=== PATIENT | female | born 1950 | race Caucasian/White ===

== ENCOUNTER 2017-12-09 19:32 | Emergency (ER) | payer MEDICARE, OTHER ==
[2017-12-09 20:06] VITALS: BP 111/58
--- NOTE | 2017-12-09 20:21 | EDM.PDOC ---
ED HPI GENERAL MEDICAL PROBLEM - General Chief Complaint: Wound Recheck Stated Complaint: [id number] BLEEDING QUITE A BIT AFTER KNEE SURGERY Time Seen by Provider: 12/09/17 20:10 Source of Information: Reports: Patient, Old Records, RN, RN Notes Reviewed History Limitations: Reports: No Limitations - History of Present Illness INITIAL COMMENTS - FREE TEXT/NARRATIVE: Zaira is a 66 yo F who present to the ER for a wound check. She reports that she had a total knee replacement on 12/07/17. She reports noticing increased drainage from her incision today. She reports that she has been more active today compared to the last couple days. Denies fever/chills. Denies trauma to knee since surgery. Onset: Today Location: Reports: Lower Extremity, Left Quality: Reports: Pressure Severity: Moderate Improves with: Reports: Rest Associated Symptoms: Reports: Other (Increased drainage from post op site. 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) Right Knee Pain Score (Numeric/FACES): 8 - Related Data Allergies Allergy/AdvReac Type Severity Reaction Status Date / Time Tetanus Vaccines and Toxoid Allergy Cannot Verified 05/09/16 06:50 [Tetanus Vaccines & Toxoid] Remember Home Meds: Home Meds Escitalopram Oxalate [Lexapro] 10 mg PO DAILY 05/09/16 [History] traZODone 50 mg PO DAILY 05/09/16 [History] Acetaminophen/oxyCODONE [Percocet 325-5 MG] 1 tab PO Q6H PRN 12/09/17 [History] LORazepam 1 tab PO ASDIRECTED 12/09/17 [History] Morphine Sulfate [Morphine Sulfate ER] 1 tab PO BID 12/09/17 [History] Sennosides/Docusate Sodium [Senna-S] 1 tab PO DAILY 12/09/17 [History] Past Medical History HEENT 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: Allergic Rhinitis Cardiovascular 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: None Respiratory 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: None Gastrointestinal 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: None Genitourinary 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: None 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 Musculoskeletal 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: Other (See Below) (right total knee replacement) Neurological 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: None Psychiatric 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: Depression, Other (See Below) Other Psychiatric History: night terrors Endocrine/Metabolic 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: None Hematologic 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: None Immunologic 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: None Oncologic (Cancer) 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: Breast Dermatologic 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: None - Past Surgical History HEENT Surgical 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: None Cardiovascular Surgical 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: None GI Surgical 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: None Female Surgical 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: None Oncologic Surgical 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: Mastectomy Other Oncologic Surgeries/Procedures: bilateral 23years ago Social & Family History - Family History Family Medical History: Noncontributory - Tobacco Use Smoking Status *Q: Never Smoker - Recreational Drug Use Recreational Drug Use: No - Living Situation & Occupation Living situation: Reports: with Family Occupation: Retired ED ROS GENERAL - Review of Systems Review Of Systems: ROS reveals no pertinent complaints other than HPI. ED EXAM, SKIN/RASH Exam: See Below Exam Limited By: No Limitations General Appearance: Alert, WD/WN, No Apparent Distress Eye Exam: Bilateral Eye: PERRL Ears: Normal External Exam, Normal Canal, Hearing Grossly Normal, Normal TMs Nose: Normal Inspection, Normal Mucosa, No Blood Throat/Mouth: Normal Inspection, Normal Lips, Normal Teeth, Normal Gums, Normal Oropharynx, Normal Voice, No Airway Compromise Head: Atraumatic, Normocephalic Neck: Normal Inspection, Supple, Non-Tender, Full Range of Motion Respiratory/Chest: No Respiratory Distress, Lungs Clear, Normal Breath Sounds, No Accessory Muscle Use, Chest Non-Tender Cardiovascular: Normal Peripheral Pulses, Regular Rate, Rhythm, No Edema, No Gallop, No JVD, No Murmur, No Rub Peripheral Pulses: 3+: Posterior Tibial (L), Dorsalis Pedis (L) GI/Abdominal: Normal Bowel Sounds, Soft, Non-Tender, No Organomegaly, No Distention, No Abnormal Bruit, No Mass (Female) Exam: Deferred Rectal (Female) Exam: Deferred Back Exam: Normal Inspection, Full Range of Motion, NT Extremities: Normal Capillary Refill, Leg Pain, Other (Swelling present to left knee. Patient has annabella in place serosanginous drainaged noted on dressing. Ecchymosis noted to medial aspect of knee. No redness or warmness noted to the touch. Other lower extremity WNL no swelling noted ) Neurological: Alert, Oriented, CN II-XII Intact, Normal Cognition, Normal Gait, Normal Reflexes, No Motor/Sensory Deficits Psychiatric: Normal Affect, Normal Mood Skin: Warm, Dry, Intact, Normal Color, Other (Surgical incision as described in above extremity assessment ) Location, Skin: Lower Extremity, Left, Other (Incision present to left knee. Annabella intact) Associated features: Swelling Lymphatic: No Adenopathy Course - Vital Signs Last Recorded V/S: Last Vital Signs Temp 99.3 F 12/09/17 20:05 Pulse 92 12/09/17 20:05 Resp 18 12/09/17 20:05 BP 111/58 L 12/09/17 20:05 Pulse Ox 94 L 12/09/17 20:05 - Orders/Labs/Meds Labs: Laboratory Tests 12/09/17 12/09/17 Range/Units 20:40 20:40 WBC 9.5 (5.0-10.0) 10^3/uL RBC 3.91 L (4.2-5.4) 10^6/uL Hgb 12.3 (12.0-16.0) g/dL Hct 36.8 L (37.0-47.0) % MCV 94.1 (80-100) fL MCH 31.5 (27.0-34.0) pg MCHC 33.4 (33.0-35.0) g/dL Plt Count 250 (150-450) 10^3/uL Neut % (Auto) 73.6 (42.2-75.2) % Lymph % (Auto) 15.0 L (20.5-50.1) % [place] % (Auto) 9.3 H (2-8) % Eos % (Auto) 1.8 (1.0-3.0) % Baso % (Auto) 0.3 (0.0-1.0) % Sodium 135 (135-145) mmol/L Potassium 3.6 (3.6-5.0) mmol/L Chloride 104 (101-111) mmol/L Carbon Dioxide 23.0 (21.0-31.0) mmol/L Anion Gap 11.6 BUN 11 (7-18) mg/dL Creatinine 1.0 (0.6-1.3) mg/dL Est Cr Clr Drug Dosing 51.14 mL/min Estimated GFR (MDRD) 56 BUN/Creatinine Ratio 11.00 Glucose 111 H (74-105) mg/dL Calcium 8.4 (8.4-10.2) mg/dl Total Bilirubin 0.6 (0.2-1.0) mg/dL AST 27 (10-42) IU/L ALT 13 (10-60) IU/L Alkaline Phosphatase 68 (42-121) IU/L Total Protein 5.7 L (6.7-8.2) g/dl Albumin 3.5 (3.2-5.5) g/dl Globulin 2.2 Albumin/Globulin Ratio 1.59 Meds: Medications Discontinued Medications Generic Name Dose Route Start Last Admin Trade Name Freq PRN Reason Stop Dose Admin Hydromorphone HCl 0.5 mg 12/09/17 21:22 12/09/17 21:27 Dilaudid IM 12/09/17 21:23 0.5 mg ONETIME ONE Administration Departure - Departure Time of Disposition: 21:43 Disposition: Home, Self-Care 01 Condition: Good Clinical Impression: Encounter for postoperative wound check - Discharge Information Instructions: Incision and Drainage, Care After Forms: ED Department Discharge Care Plan Goals: Elevate leg as much as possible when not up and moving around. Ice to help with swelling. Continue your pain medications as previously proscribed. Compression dressing to knee to help with swelling and drainage. Follow-up with orthopedics as previously scheduled.
[2017-12-09] MEDS ORDERED: HYDROmorphone 0.5 MG/0.5 ML Syringe IM ONE (21:22)
== END 2017-12-09 21:55 | disposition home or self-care (01) ==
LOC: DL.ED 19:32
DX: Z48.00 Encounter for change or removal of nonsurgical wound dressing (principal); Z88.7 Allergy status to serum and vaccine
CPT/HCPCS: 36415; 80053; 85025; 96372; 99282; J1170

== ENCOUNTER 2019-07-02 02:27 | Emergency (ER) | payer MEDICARE, OTHER ==
[2019-07-02 02:37] VITALS: BP 112/59; PULSE 92
[2019-07-02] MEDS ORDERED: Acetaminophen/HYDROcodone 325-10 MG Tab PO ONE (02:38)
--- NOTE | 2019-07-02 02:39 | EDM.PDOC ---
ED HPI GENERAL MEDICAL PROBLEM - General Chief Complaint: Chest Pain Stated Complaint: left ribs Time Seen by Provider: 07/02/19 02:37 Source of Information: Reports: Patient History Limitations: Reports: No Limitations - History of Present Illness INITIAL COMMENTS - FREE TEXT/NARRATIVE: states been out with friends and had a few drinks. slipped and fell onto left ribs a hours ago. Left Chest Pain Score (Numeric/FACES): 10 - Related Data Allergies Allergy/AdvReac Type Severity Reaction Status Date / Time Tetanus Vaccines and Toxoid Allergy Cannot Verified 07/02/19 02:31 [Tetanus Vaccines & Toxoid] Remember Home Meds: Home Meds Escitalopram Oxalate [Lexapro] 10 mg PO DAILY 05/09/16 [History] traZODone 50 mg PO DAILY 05/09/16 [History] Acetaminophen/oxyCODONE [Percocet 325-5 MG] 1 tab PO Q6H PRN 12/09/17 [History] LORazepam 1 tab PO ASDIRECTED 12/09/17 [History] Morphine Sulfate [Morphine Sulfate ER] 1 tab PO BID 12/09/17 [History] Sennosides/Docusate Sodium [Senna-S] 1 tab PO DAILY 12/09/17 [History] Past Medical History HEENT 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: Allergic Rhinitis Cardiovascular 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: None Respiratory 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: None Gastrointestinal 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: None Genitourinary 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: None 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 Musculoskeletal 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: Other (See Below) Neurological 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: None Psychiatric 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: Depression, Other (See Below) Other Psychiatric History: night terrors Endocrine/Metabolic 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: None Hematologic 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: None Immunologic 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: None Oncologic (Cancer) 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: Breast Dermatologic 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: None - Past Surgical History HEENT Surgical 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: None Cardiovascular Surgical 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: None GI Surgical 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: None Female Surgical 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: None Oncologic Surgical 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: Mastectomy Other Oncologic Surgeries/Procedures: bilateral 23years ago Social & Family History - Family History Family Medical History: Noncontributory - Tobacco Use Smoking Status *Q: Never Smoker - Caffeine Use Caffeine Use: Reports: None - Recreational Drug Use Recreational Drug Use: No - Living Situation & Occupation Living situation: Reports: with Family Occupation: Retired ED ROS GENERAL - Review of Systems Review Of Systems: ROS reveals no pertinent complaints other than HPI. ED EXAM, GENERAL - Physical Exam Exam: See Below Exam Limited By: No Limitations General Appearance: Alert, WD/WN, Mild Distress, Moderate Distress, Other (pain) Ears: Hearing Grossly Normal Throat/Mouth: Normal Voice, No Airway Compromise Head: Atraumatic Neck: Non-Tender, Full Range of Motion Respiratory/Chest: Other (tender left lateral 6-7-8 region) Cardiovascular: Regular Rate, Rhythm GI/Abdominal: Soft, Non-Tender Neurological: Alert, Oriented, Normal Cognition, Normal Gait, No Motor/Sensory Deficits Psychiatric: Tearful Skin Exam: Warm, Dry, Normal Color Lymphatic: No Adenopathy Course - Vital Signs Last Recorded V/S: Last Vital Signs Temp 35.8 C 07/02/19 02:31 Pulse 92 07/02/19 02:31 Resp 16 07/02/19 02:31 BP 112/59 L 07/02/19 02:31 Pulse Ox 97 07/02/19 02:31 - Orders/Labs/Meds Orders: Active Orders 24 hr Category Date Time Status Ribs 2V w Chest Lt [CR] Urgent Exams 07/02/19 02:35 Taken HYDROmorphone [Dilaudid] Med 07/02/19 05:00 Once 1 mg IM ONETIME ONE Meds: Medications Discontinued Medications Generic Name Dose Route Start Last Admin Trade Name Mahi PRN Reason Stop Dose Admin Hydrocodone Bitart/Acetaminophen 1 tab 07/02/19 02:38 07/02/19 02:42 Odd 325-10 Mg PO 07/02/19 02:39 1 tab ONETIME ONE Administration Ketorolac Tromethamine 30 mg 07/02/19 04:16 07/02/19 04:20 Toradol IM 07/02/19 04:17 30 mg ONETIME ONE Administration - Re-Assessments/Exams Free Text/Narrative Re-Assessment/Exam: 07/02/19 05:00 results discussed with pt. Departure - Departure Time of Disposition: 05:01 Disposition: Home, Self-Care 01 Condition: Good Clinical Impression: Ribs, multiple fractures Qualifiers: Encounter type: initial encounter Fracture type: closed Laterality: left Qualified Code(s): S22.42XA - Multiple fractures of ribs, left side, initial encounter for closed fracture Instructions: Rib Fracture, [id number] Forms: ED Department Discharge Additional Instructions: 1) rest as much as possible 2) follow up at clinic Wednesday 3) recheck if there is any change or concern rx given; norco 10 bid to tid prn pain x 12 - My Orders Last 24 Hours: My Active Orders 07/02/19 02:35 Ribs 2V w Chest Lt [CR] Urgent 07/02/19 05:00 HYDROmorphone [Dilaudid] 1 mg IM ONETIME ONE - Assessment/Plan Last 24 Hours: My Active Orders 07/02/19 02:35 Ribs 2V w Chest Lt [CR] Urgent 07/02/19 05:00 HYDROmorphone [Dilaudid] 1 mg IM ONETIME ONE
[2019-07-02] MEDS ORDERED: Ketorolac 30 MG/ML SDV IM ONE (04:16)
[2019-07-02] MEDS ORDERED: HYDROmorphone 1 MG/ML Syringe IM ONE (05:00)
== END 2019-07-02 05:15 | disposition home or self-care (01) ==
LOC: DL.ED 02:27
DX: S22.42XA Multiple fractures of ribs, left side, initial encounter for closed fracture (principal); Z88.7 Allergy status to serum and vaccine; F32.9 Major depressive disorder, single episode, unspecified; W01.0XXA Fall on same level from slipping, tripping and stumbling without subsequent striking against object, initial encounter; Y92.009 Unspecified place in unspecified non-institutional (private) residence as the place of occurrence of the external cause; Y93.01 Activity, walking, marching and hiking
CPT/HCPCS: 71101; 96372; 99283; A9270; J1170; J1885

== ENCOUNTER 2019-07-02 17:56 | Emergency (ER) | payer MEDICARE, OTHER ==
[2019-07-02] MEDS ORDERED: Rocuronium 100 MG/10 ML MDV IV ONE (17:57)
[2019-07-02] MEDS ORDERED: fentaNYL 100 MCG/2 ML SDV IV ONE (17:57)
[2019-07-02] MEDS ORDERED: Propofol 1,000 MG/100 ML SDV IV ONE (17:57)
[2019-07-02] MEDS ORDERED: Midazolam 50 MG in Sodium Chloride 0.9% 50 ML IV ONE (17:57)
[2019-07-02] MEDS ORDERED: Midazolam 1 MG/ML 2 ML SDV IV ONE (17:57)
[2019-07-02] MEDS ORDERED: Propofol 200 MG/20 ML SDV IV ONE (17:57)
[2019-07-02] MEDS ORDERED: Sodium Chloride 0.9% 10 ML Syringe FLUSH PRN (18:11)
[2019-07-02] MEDS ORDERED: fentaNYL 100 MCG/2 ML SDV ONE (18:16)
[2019-07-02] MEDS ORDERED: Midazolam 1 MG/ML 2 ML SDV ONE (18:16)
[2019-07-02 18:43] LABS: ANION GAP 15.1; CHLORIDE,CL 97 mmol/L (101-111); SODIUM,NA 130 mmol/L (135-145)
[2019-07-02 18:53] VITALS: BP 139/79; PULSE 113
--- NOTE | 2019-07-02 19:12 | PCM.SN ---
- Free Text/Narrative Note: Intubation. Pt and ED provider requesting intubation for pneumothorax and fractured ribs. Pt with difficulty breathing, RR 27 with O2 sats 97% on simple mask. Pt denies previous cardiac or pulmonary complications, NKA, and NPO for 6 hours. Pt informed of procedure as well as risks associated. Pt requesting to be intubated. 1824 Pt medicated with 5 mg of Zemuron IV, 2 mg versed and 100 mcg Fentanyl IV while being pre oxygenated. Propofol 100 mg IV and Anectine 80 mg IV. Pt intubated with glidescope 3 blade, 7.0 ETT 21 cm at lip. Pos fogging Pos ETCO2 color change. BBS with coarse sounds noted Left side of chest. Tube secured . Propofol gtt and versed gtt started. Pt with hypo tension, propofol stopped. 77/40 Ephedrine 20 mg IV given. BP returns to normotensive range. Propofol restarted at 75 mcg/kg/min PXCR ordered and report given to ER provider. Procedure time 1819 to 1909
--- NOTE | 2019-07-02 20:00 | EDM.PDOC ---
ED HPI GENERAL MEDICAL PROBLEM - General Chief Complaint: Respiratory Problem Stated Complaint: PAIN Time Seen by Provider: 07/02/19 18:15 Source of Information: Reports: Patient, EMS, EMS Notes Reviewed, RN, RN Notes Reviewed History Limitations: Reports: No Limitations, Respiratory Distress - History of Present Illness INITIAL COMMENTS - FREE TEXT/NARRATIVE: Pt to ER per [facility] with c/o pain, increased SOB, and swelling. Patient states she was seen in the ER last night with fractured ribs on the left (6&7). Xray report did not states pneumothorax. Patient states she has been becoming more edematous and short of breath throughout the day. Patient states she began noticing subcutaneous emphysema and called the ambulance. Patient requests to be intubated and a chest tube placed. Patient on NC at 6L O2 sats 88%. Onset: Today, Sudden Chest Pain Score (Numeric/FACES): 10 - Related Data Allergies Allergy/AdvReac Type Severity Reaction Status Date / Time Tetanus Vaccines and Toxoid Allergy Cannot Verified 07/02/19 19:03 [Tetanus Vaccines & Toxoid] Remember Home Meds: Home Meds Escitalopram Oxalate [Lexapro] 10 mg PO DAILY 05/09/16 [History] traZODone 50 mg PO DAILY 05/09/16 [History] Acetaminophen/oxyCODONE [Percocet 325-5 MG] 1 tab PO Q6H PRN 12/09/17 [History] LORazepam 1 tab PO ASDIRECTED 12/09/17 [History] Morphine Sulfate [Morphine Sulfate ER] 1 tab PO BID 12/09/17 [History] Sennosides/Docusate Sodium [Senna-S] 1 tab PO DAILY 12/09/17 [History] Past Medical History HEENT 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: Allergic Rhinitis Cardiovascular 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: None Respiratory 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: None Gastrointestinal 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: None Genitourinary 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: None 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 Musculoskeletal 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: Other (See Below) Neurological 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: None Psychiatric 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: Depression, Other (See Below) Other Psychiatric History: night terrors Endocrine/Metabolic 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: None Hematologic 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: None Immunologic 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: None Oncologic (Cancer) 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: Breast Dermatologic 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: None - Past Surgical History HEENT Surgical 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: None Cardiovascular Surgical 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: None GI Surgical 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: None Female Surgical 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: None Oncologic Surgical 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: Mastectomy Other Oncologic Surgeries/Procedures: bilateral 23years ago Social & Family History - Family History Family Medical History: Noncontributory - Caffeine Use Caffeine Use: Reports: None - Living Situation & Occupation Living situation: Reports: with Family Occupation: Retired ED ROS GENERAL - Review of Systems Review Of Systems: ROS reveals no pertinent complaints other than HPI. ED EXAM, GENERAL - Physical Exam Exam: See Below Exam Limited By: No Limitations General Appearance: Alert, WD/WN, Anxious, Moderate Distress Eye Exam: Bilateral Eye: EOMI, Normal Inspection Ears: Normal External Exam, Hearing Grossly Normal Nose: Normal Inspection Throat/Mouth: Other (nasal/congested sounded voice, SOB, lips swollen, patient very uncomfortable) Head: Atraumatic, Normocephalic Neck: Other (severe edema, subq emphysema) Respiratory/Chest: Respiratory Distress, Decreased Breath Sounds (left), Crackles (left), Accessory Muscle Use Cardiovascular: Normal Peripheral Pulses, Regular Rate, Rhythm, Other (severe edema to face, chest, neck, back, subq emphysema) Peripheral Pulses: 1+: Radial (L), Radial (R) GI/Abdominal: Normal Bowel Sounds, Soft, Non-Tender (Female) Exam: Deferred Rectal (Female) Exam: Deferred Back Exam: Other (upper back edematous and subq emphysema noted) Extremities: Limited Range of Motion, Other (upper arms edematous ) Neurological: Alert, Oriented, Normal Cognition, No Motor/Sensory Deficits Psychiatric: Anxious Skin Exam: Cool, Other (severe diffuse edema and subq emphysema) ED RESPIRATORY PROCEDURES - Chest Tube Insertion Chest Tube Location: Left Site: Mid Axillary Line Tube Size: 28Fr Skin Prep: CDC Guidelines Followed, Betadine [place] of [employer] [place]: Yes Number of Attempts: 1 Tube Sutured to Skin: Yes Post procedure tube position confirmed by: by CXR, by Provider Tube Connected to Suction: Yes Course - Vital Signs Last Recorded V/S: Last Vital Signs Temp 97.8 F 07/02/19 18:30 Pulse 113 H 07/02/19 18:30 Resp 30 H 07/02/19 18:30 BP 139/79 07/02/19 18:30 Pulse Ox 90 L 07/02/19 18:30 - Orders/Labs/Meds Orders: Active Orders 24 hr Category Date Time Status EKG Documentation Completion [RC] STAT Care 07/02/19 18:11 Active Peripheral IV Care [RC] . DIRECTED Care 07/02/19 18:11 Active RT Ventilator, Adult [RC] ASDIRECTED Care 07/02/19 19:50 Active Peripheral IV Insertion Adult [OM.PC] Stat Oth 07/02/19 18:11 Ordered Labs: Laboratory Tests 07/02/19 07/02/19 07/02/19 Range/Units 18:16 18:16 18:16 WBC 15.1 H (5.0-10.0) 10^3/uL RBC 4.60 (4.2-5.4) 10^6/uL Hgb 14.4 D (12.0-16.0) g/dL Hct 41.4 (37.0-47.0) % MCV 90.0 D (80-100) fL MCH 31.3 (27.0-34.0) pg MCHC 34.8 (33.0-35.0) g/dL Plt Count 427 D (150-450) 10^3/uL Neut % (Auto) 77.3 H (42.2-75.2) % Lymph % (Auto) 17.7 L (20.5-50.1) % [place] % (Auto) 4.6 (2-8) % Eos % (Auto) 0.3 L (1.0-3.0) % Baso % (Auto) 0.1 (0.0-1.0) % PT 9.4 (9.0-12.0) SEC INR 0.9 (0.9-1.2) Sodium 130 L (135-145) mmol/L Potassium 4.1 (3.6-5.0) mmol/L Chloride 97 L (101-111) mmol/L Carbon Dioxide 22.0 (21.0-31.0) mmol/L Anion Gap 15.1 BUN 14 (7-18) mg/dL Creatinine 0.9 (0.6-1.3) mg/dL Est Cr Clr Drug Dosing TNP Estimated GFR (MDRD) > 60 BUN/Creatinine Ratio 15.55 Glucose 125 H (74-105) mg/dL Calcium 8.6 (8.4-10.2) mg/dl Total Bilirubin 0.7 (0.2-1.0) mg/dL AST 28 (10-42) IU/L ALT 22 (10-60) IU/L Alkaline Phosphatase 92 (42-121) IU/L Troponin I < 0.02 (0.00-0.02) ng/ml Total Protein 7.0 (6.7-8.2) g/dl Albumin 4.3 (3.2-5.5) g/dl Globulin 2.7 Albumin/Globulin Ratio 1.59 Meds: Medications Discontinued Medications Generic Name Dose Route Start Last Admin Trade Name Freq PRN Reason Stop Dose Admin Fentanyl Confirm 07/02/19 18:16 Sublimaze Administered 07/02/19 18:17 Dose 100 mcg .ROUTE .STK-MED ONE Midazolam HCl Confirm 07/02/19 18:16 Versed 1 Mg/Ml Administered 07/02/19 18:17 Dose 2 mg .ROUTE .STK-MED ONE Sodium Chloride 10 ml 07/02/19 18:11 Saline Flush FLUSH ASDIRECTED PRN Keep Vein Open - Radiology Interpretation Free Text/Narrative:: Chest xray: FINDINGS: Lungs: Increased interstitial lung markings suggesting edema, infection or fibrotic changes. Cannot exclude left pleural effusion and adjacent atelectasis versus infiltrate. Pleural space: See Soft Tissues Finding. Heart/Mediastinum: Unremarkable. No cardiomegaly. Bones/joints: Several left rib fractures, age undetermined. Soft tissues: Extensive soft tissue emphysema in the chest wall and neck. This limits evaluation of the underlying lungs. The right lung appears darker than the left lung. CT should be obtained to exclude any underlying pathology such as pneumothorax. IMPRESSION: Extensive soft tissue emphysema in the chest wall and neck. This limits evaluation of the underlying lungs. The right lung appears darker than the left lung. CT should be obtained to exclude any underlying pathology such as pneumothorax. Increased interstitial lung markings suggesting edema, infection or fibrotic changes. Cannot exclude left pleural effusion and adjacent atelectasis versus infiltrate. Several left rib fractures, age undetermined. Consider CT Thank you for allowing us to participate in the care of your patient. Dictated and Authenticated by: Marixa Shah MD 07/02/2019 6:38 PM Central Time ([place] & [place]) Addendum created by Marixa Shah MD on 07/02/2019 7:58 PM Central Time ([place] & [place]) Please note that the chest tube is left-sided, not right. Addendum created by Marixa Shah MD on 07/02/2019 7:25 PM Central Time ([place] & [place]) THIS REPORT CONTAINS FINDINGS THAT MAY BE CRITICAL TO PATIENT CARE. The findings were verbally communicated via telephone conference with Puja Robbins at 7: 24 PM CDT on 07/02/2019. The findings were acknowledged and understood. Initial Report created on 07/02/2019 7:22 PM Central Time ([place] & [place]) PROCEDURE INFORMATION: Exam: XR Chest, 1 View Exam date and time: 07/02/2019 7:11 PM Clinical history: 68 years old, female; Other: Post intubation and chest tube placement TECHNIQUE: Imaging protocol: XR of the chest Views: 1 view. COMPARISON: CR Chest 1V Frontal 07/02/2019 6:11 PM FINDINGS: Tubes, catheters and devices: ET tube is properly positioned. NG tube ends in the proximal esophagus. Right chest tube is present. Remaining findings are unchanged since the prior exam. IMPRESSION: ET tube is properly positioned. This report is intended only for use by the referring physician, and only in accordance with law. If you received this in error, call [phone]. Page 2 of 2 NG tube ends in the proximal esophagus. Right chest tube is present. Remaining findings are unchanged since the prior exam. Thank you for allowing us to participate in the care of your patient. Dictated and Authenticated by: Marixa Shah MD 07/02/2019 7:22 PM Central Time ( & [place]) see radiologist's report Departure - Departure Time of Disposition: 19:45 Disposition: DC/Tfer to Acute Hospital 02 Condition: Poor, Serious, Critical Clinical Impression: Pneumothorax on left Ribs, multiple fractures Qualifiers: Encounter type: initial encounter Fracture type: closed Laterality: left Qualified Code(s): S22.42XA - Multiple fractures of ribs, left side, initial encounter for closed fracture Subcutaneous emphysema due to trauma Qualifiers: Encounter type: initial encounter Qualified Code(s): T79.7XXA - Traumatic subcutaneous emphysema, initial encounter - Discharge Information *PRESCRIPTION DRUG MONITORING PROGRAM REVIEWED*: No *COPY OF PRESCRIPTION DRUG MONITORING REPORT IN PATIENT [place]: No Forms: ED Department Discharge, Interfacility Transfer EMTALA - My Orders Last 24 Hours: My Active Orders 07/02/19 18:11 EKG Documentation Completion [RC] STAT Peripheral IV Care [RC] . DIRECTED Peripheral IV Insertion Adult [OM.PC] Stat 07/02/19 19:50 RT Ventilator, Adult [RC] ASDIRECTED - Assessment/Plan Last 24 Hours: My Active Orders 07/02/19 18:11 EKG Documentation Completion [RC] STAT Peripheral IV Care [RC] . DIRECTED Peripheral IV Insertion Adult [OM.PC] Stat 07/02/19 19:50 RT Ventilator, Adult [RC] ASDIRECTED
== END 2019-07-02 19:45 ==
LOC: DL.ED 17:56
DX: S27.0XXA Traumatic pneumothorax, initial encounter (principal); S22.42XA Multiple fractures of ribs, left side, initial encounter for closed fracture; T79.7XXA Traumatic subcutaneous emphysema, initial encounter; F32.9 Major depressive disorder, single episode, unspecified; Z88.7 Allergy status to serum and vaccine; J93.9 Pneumothorax, unspecified; W19.XXXA Unspecified fall, initial encounter; Y92.009 Unspecified place in unspecified non-institutional (private) residence as the place of occurrence of the external cause; W01.0XXA Fall on same level from slipping, tripping and stumbling without subsequent striking against object, initial encounter; Y93.01 Activity, walking, marching and hiking
CPT/HCPCS: 31500; 32551; 36415; 71045; 71101; 80053; 84484; 85025; 85610; 96372; 99283; 99284; 99291; 99292; A9270; C1729; J1170; J1885; J2250; J2704; J3010; J7050

== ENCOUNTER 2020-05-12 05:18 | Emergency (ER) | payer MEDICARE, OTHER ==
[2020-05-12 05:24] VITALS: BP 124/66; PULSE 118
--- NOTE | 2020-05-12 06:07 | EDM.PDOC ---
ED HPI GENERAL MEDICAL PROBLEM - General Chief Complaint: Skin Complaint Stated Complaint: REDNESS AND SWELLING IN LEG Time Seen by Provider: 05/12/20 05:50 Source of Information: Reports: Patient, RN History Limitations: Reports: No Limitations - History of Present Illness INITIAL COMMENTS - FREE TEXT/NARRATIVE: 69-year-old female who presents to the ER with complaints of right leg pain and redness that began yesterday. Patient states that pain came on out of sudden. She reports having leg bath yesterday but couldn't sleep because of pain. She denies any fevers, chills at this time. Has not tried anything for pain. Denies any recent injury or wounds. Right Lower Leg Pain Score (Numeric/FACES): 8 - Related Data Allergies Allergy/AdvReac Type Severity Reaction Status Date / Time Tetanus Vaccines and Toxoid Allergy Cannot Verified 05/12/20 05:24 [Tetanus Vaccines & Toxoid] Remember Home Meds: Home Meds Escitalopram Oxalate [Lexapro] 20 mg PO DAILY 05/09/16 [History] traZODone 50 mg PO DAILY 05/09/16 [History] LORazepam 1 tab PO ASDIRECTED 12/09/17 [History] Omeprazole 20 mg PO DAILY 05/12/20 [History] Past Medical History HEENT 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: Allergic Rhinitis Cardiovascular 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: None Respiratory 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: None Gastrointestinal 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: GERD Genitourinary 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: None 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: 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 Musculoskeletal 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: Arthritis Neurological 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: None Psychiatric 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: Depression, Other (See Below) Other Psychiatric History: night terrors Endocrine/Metabolic 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: None Hematologic 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: None Immunologic 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: None Oncologic (Cancer) 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: Breast Dermatologic 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: None - Infectious Disease History Infectious Disease 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: Chicken Pox, Measles, Mumps - Past Surgical History HEENT Surgical 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: None Cardiovascular Surgical 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: None GI Surgical 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: None Female Surgical 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: None Oncologic Surgical 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: Mastectomy Other Oncologic Surgeries/Procedures: bilateral 23years ago Social & Family History - Family History Family Medical History: Noncontributory - Tobacco Use Smoking Status *Q: Current Every Day Smoker Years of Tobacco use: 40 Packs/Tins Daily: 0.3 Second Hand Smoke Exposure: Yes - Caffeine Use Caffeine Use: Reports: None - Recreational Drug Use Recreational Drug Use: No - Living Situation & Occupation Living situation: Reports: with Family Occupation: Retired ED ROS GENERAL - Review of Systems Review Of Systems: Comprehensive ROS is negative, except as noted in HPI. ED EXAM, SKIN/RASH Exam: See Below Exam Limited By: No Limitations General Appearance: Alert, Mild Distress Respiratory/Chest: No Respiratory Distress, Lungs Clear, Normal Breath Sounds, No Accessory Muscle Use, Chest Non-Tender Cardiovascular: Normal Peripheral Pulses, Regular Rate, Rhythm, No Edema, No Gallop, No JVD, No Murmur, No Rub Peripheral Pulses: 3+: Posterior Tibial (R), Dorsalis Pedis (R) Neurological: Alert, Oriented, Normal Gait, No Motor/Sensory Deficits Psychiatric: Normal Affect, Normal Mood Skin: Increased Warmth (and redness noted on the right carlos. Area demarcated with a marker.) Location, Skin: Lower Extremity, Right Associated features: Warmth, Tenderness Course - Vital Signs Last Recorded V/S: Last Vital Signs Temp 97 F 05/12/20 05:20 Pulse 118 H 05/12/20 05:20 Resp 18 05/12/20 05:20 BP 124/66 05/12/20 05:20 Pulse Ox 94 L 05/12/20 05:20 - Re-Assessments/Exams Free Text/Narrative Re-Assessment/Exam: Review exam findings with patient. Rx for clindamycin sent home with patient. Medication side effects reviewed with patient. Follow up with PCP next week. Departure - Departure Time of Disposition: 06:11 Disposition: Home, Self-Care 01 Condition: Good Clinical Impression: Cellulitis Qualifiers: Site of cellulitis: extremity Site of cellulitis of extremity: lower extremity Laterality: right Qualified Code(s): L03.115 - Cellulitis of right lower limb - Discharge Information Instructions: Cellulitis, Adult, [id number] Additional Instructions: Encourage patient to apply ice to the right leg and elevate it at home. Ibuprofen and Tylenol when necessary for pain. Take antibiotics as prescribed. Also take probiotics when having diarrhea. Follow up PCP next week. Sepsis Event Note (ED) - Evaluation Sepsis Screening Result: No Definite Risk - Focused Exam Vital Signs: Vital Signs Temp Pulse Resp BP Pulse Ox 05/12/20 05:20 97 F 118 H 18 124/66 94 L
== END 2020-05-12 06:15 | disposition home or self-care (01) ==
LOC: DL.ED 05:18
DX: L03.115 Cellulitis of right lower limb (principal); K21.9 Gastro-esophageal reflux disease without esophagitis; F32.9 Major depressive disorder, single episode, unspecified; F17.210 Nicotine dependence, cigarettes, uncomplicated; Z88.7 Allergy status to serum and vaccine; Z79.899 Other long term (current) drug therapy
CPT/HCPCS: 99283

== ENCOUNTER 2020-05-16 22:24 | Emergency (ER) | payer MEDICARE, OTHER ==
[2020-05-16 22:32] VITALS: BP 148/82; PULSE 108
--- NOTE | 2020-05-16 22:42 | EDM.PDOC ---
ED HPI GENERAL MEDICAL PROBLEM - General Chief Complaint: Skin Complaint Stated Complaint: CELLULITUS ON THE RIGHT LEG, PAIN Time Seen by Provider: 05/16/20 22:30 Source of Information: Reports: Patient History Limitations: Reports: No Limitations - History of Present Illness INITIAL COMMENTS - FREE TEXT/NARRATIVE: This 69 yo female patient reports to the ED with right anterior carlos discomfort. The patient was seen in the ED 4 days ago, diagnosed with cellulitis, started on Clindamycin and reports increased pain to the area. The patient reports she has been taking ibuprofen with no symptom improvement. The patient reports she has been taking the antibiotics as prescribed. The patient has not followed-up with her primary care facility. Duration: Day(s):, Constant, Getting Worse Location: Reports: Lower Extremity, Right Quality: Reports: Ache, Throbbing Severity: Moderate Improves with: Reports: None Worsens with: Reports: None Context: Reports: Other Associated Symptoms: Reports: No Other Symptoms Treatments KENNEL SUPERVISOR: Reports: NSAIDS Right Lower Leg Pain Score (Numeric/FACES): 8 - Related Data Allergies Allergy/AdvReac Type Severity Reaction Status Date / Time Tetanus Vaccines and Toxoid Allergy Cannot Verified 05/16/20 22:30 [Tetanus Vaccines & Toxoid] Remember Home Meds: Home Meds Escitalopram Oxalate [Lexapro] 20 mg PO DAILY 05/09/16 [History] traZODone 50 mg PO DAILY 05/09/16 [History] LORazepam 1 tab PO ASDIRECTED 12/09/17 [History] Omeprazole 20 mg PO DAILY 05/12/20 [History] Past Medical History HEENT 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: Allergic Rhinitis Cardiovascular 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: None Respiratory 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: None Gastrointestinal 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: GERD Genitourinary 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: None NATIONAL SALES 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: None Musculoskeletal 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: Arthritis Neurological 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: None Psychiatric 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: Anxiety, Depression, Other (See Below) Other Psychiatric History: night terrors Endocrine/Metabolic 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: None Hematologic 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: None Immunologic 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: None Oncologic (Cancer) 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: Breast Dermatologic 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: None - Infectious Disease History Infectious Disease 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: Chicken Pox, Measles, Mumps - Past Surgical History HEENT Surgical 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: None Cardiovascular Surgical 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: None GI Surgical 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: None Female Surgical 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: None Oncologic Surgical 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: Mastectomy Other Oncologic Surgeries/Procedures: bilateral 23years ago Social & Family History - Family History Family Medical History: Noncontributory - Tobacco Use Smoking Status *Q: Current Every Day Smoker Years of Tobacco use: 10 Packs/Tins Daily: 0.2 - Caffeine Use Caffeine Use: Reports: Coffee - Recreational Drug Use Recreational Drug Use: No - Living Situation & Occupation Living situation: Reports: with Family Occupation: Retired ED ROS GENERAL - Review of Systems Review Of Systems: Comprehensive ROS is negative, except as noted in HPI. ED EXAM, SKIN/RASH Exam: See Below Exam Limited By: No Limitations General Appearance: Alert, WD/WN, No Apparent Distress Eye Exam: Bilateral Eye: EOMI, Normal Inspection, PERRL Ears: Normal External Exam, Normal Canal, Hearing Grossly Normal, Normal TMs Nose: Normal Inspection, Normal Mucosa, No Blood Throat/Mouth: Normal Inspection, Normal Lips, Normal Teeth, Normal Gums, Normal Oropharynx, Normal Voice, No Airway Compromise Head: Atraumatic, Normocephalic Neck: Normal Inspection, Supple, Non-Tender, Full Range of Motion Respiratory/Chest: No Respiratory Distress, Lungs Clear, Normal Breath Sounds, No Accessory Muscle Use, Chest Non-Tender Cardiovascular: Normal Peripheral Pulses, Regular Rate, Rhythm, No Edema, No Gallop, No JVD, No Murmur, No Rub GI/Abdominal: Normal Bowel Sounds, Soft, Non-Tender, No Organomegaly, No Distention, No Abnormal Bruit, No Mass (Female) Exam: Deferred Rectal (Female) Exam: Deferred Back Exam: Normal Inspection, Full Range of Motion, NT Extremities: Leg Pain (right anterior leg pain) Neurological: Alert, Oriented, CN II-XII Intact, Normal Cognition, Normal Gait, Normal Reflexes, No Motor/Sensory Deficits Psychiatric: Normal Affect, Normal Mood Skin: Warm, Dry, Intact, Normal Color, Erythema (mild erythema well within borders drawn at last visit. ) Location, Skin: Lower Extremity, Right Associated features: Tenderness. No: Warmth, Swelling Lymphatic: No Adenopathy Course - Vital Signs Last Recorded V/S: Last Vital Signs Temp 36.4 C 05/16/20 22:30 Pulse 108 H 05/16/20 22:30 Resp 20 05/16/20 22:30 BP 148/82 H 05/16/20 22:30 Pulse Ox 96 05/16/20 22:30 - Orders/Labs/Meds Orders: Active Orders 24 hr Category Date Time Status CULTURE BLOOD [BC] Stat Lab 05/16/20 22:33 Ordered Labs: Laboratory Tests 05/16/20 05/16/20 05/16/20 Range/Units 22:43 22:43 22:43 WBC 8.3 (5.0-10.0) 10^3/uL RBC 4.70 (4.2-5.4) 10^6/uL Hgb 14.7 (12.0-16.0) g/dL Hct 42.8 (37.0-47.0) % MCV 91.1 (80-100) fL MCH 31.3 (27.0-34.0) pg MCHC 34.3 (33.0-35.0) g/dL Plt Count 346 D (150-450) 10^3/uL Neut % (Auto) 58.0 (42.2-75.2) % Lymph % (Auto) 33.7 (20.5-50.1) % Green % (Auto) 5.9 (2-8) % Eos % (Auto) 2.0 (1.0-3.0) % Baso % (Auto) 0.4 (0.0-1.0) % D-Dimer, Quantitative 642 H (0-400) ng/mL Sodium 139 (136-145) mmol/L Potassium 3.6 (3.5-5.1) mmol/L Chloride 103 (98-107) mmol/L Carbon Dioxide 24 (21-32) mmol/L Anion Gap 15.6 H (7-13) mEq/L BUN 11 (7-18) mg/dL Creatinine 0.95 (0.55-1.02) mg/dL Est Cr Clr Drug Dosing 53.79 mL/min Estimated GFR (MDRD) 59 BUN/Creatinine Ratio 11.6 (No establ ref range) Glucose 108 H (74-99) mg/dL Lactic Acid (0.4-2.0) mmol/L Calcium 9.1 (8.5-10.1) mg/dL Total Bilirubin 0.3 (0.2-1.0) mg/dL AST 14 L (15-37) U/L ALT 16 (14-59) U/L Alkaline Phosphatase 90 (46-116) U/L Total Protein 7.0 (6.4-8.2) g/dL Albumin 3.9 (3.4-5.0) g/dL Globulin 3.1 Albumin/Globulin Ratio 1.3 /06/25 Range/Units 22:43 WBC (5.0-10.0) 10^3/uL RBC (4.2-5.4) 10^6/uL Hgb (12.0-16.0) g/dL Hct (37.0-47.0) % MCV (80-100) fL MCH (27.0-34.0) pg MCHC (33.0-35.0) g/dL Plt Count (150-450) 10^3/uL Neut % (Auto) (42.2-75.2) % Lymph % (Auto) (20.5-50.1) % Green % (Auto) (2-8) % Eos % (Auto) (1.0-3.0) % Baso % (Auto) (0.0-1.0) % D-Dimer, Quantitative (0-400) ng/mL Sodium (136-145) mmol/L Potassium (3.5-5.1) mmol/L Chloride (98-107) mmol/L Carbon Dioxide (21-32) mmol/L Anion Gap (7-13) mEq/L BUN (7-18) mg/dL Creatinine (0.55-1.02) mg/dL Est Cr Clr Drug Dosing mL/min Estimated GFR (MDRD) BUN/Creatinine Ratio (No establ ref range) Glucose (74-99) mg/dL Lactic Acid 1.3 (0.4-2.0) mmol/L Calcium (8.5-10.1) mg/dL Total Bilirubin (0.2-1.0) mg/dL AST (15-37) U/L ALT (14-59) U/L Alkaline Phosphatase (46-116) U/L Total Protein (6.4-8.2) g/dL Albumin (3.4-5.0) g/dL Globulin Albumin/Globulin Ratio Departure - Departure Time of Disposition: 00:45 Disposition: Home, Self-Care 01 Condition: Fair Clinical Impression: Cellulitis Qualifiers: Site of cellulitis: extremity Site of cellulitis of extremity: lower extremity Laterality: right Qualified Code(s): L03.115 - Cellulitis of right lower limb - Discharge Information *PRESCRIPTION DRUG MONITORING PROGRAM REVIEWED*: Not Applicable *COPY OF PRESCRIPTION DRUG MONITORING REPORT IN PATIENT CHAPITO: Not Applicable Instructions: Cellulitis, Adult, [id number] Forms: ED Department Discharge Care Plan Goals: The patient was advised of the examination, lab and ultrasound results. The patient was encouraged to continue with the current antibiotics as prescribed. The patient should keep the extremity elevated to reduce swelling. The patient may take Tylenol or ibuprofen as directed for temporary symptom relief. If the patient has any additional symptoms or concerns, the patient should either follow-up with her primary care facility or return to the emergency department. Sepsis Event Note (ED) - Evaluation Sepsis Screening Result: No Definite Risk - Focused Exam Vital Signs: Vital Signs Temp Pulse Resp BP Pulse Ox 05/16/20 22:30 36.4 C 108 H 20 148/82 H 96 - My Orders Last 24 Hours: My Active Orders 05/16/20 22:33 CULTURE BLOOD [BC] Stat - Assessment/Plan Last 24 Hours: My Active Orders 05/16/20 22:33 CULTURE BLOOD [BC] Stat
[2020-05-16 23:08] LABS: ANION GAP 15.6 mEq/L (7-13)
--- NOTE | 2020-05-17 00:40 | US ---
PROCEDURE INFORMATION: Exam: US Duplex Right Lower Extremity Veins, Limited Exam date and time: 05/16/2020 11:48 PM Age: 69 years old Clinical indication: Swelling (edema) of limb; Lower extremity, right; Additional info: Right lower extremity swelling (d-dimer 642) TECHNIQUE: Imaging protocol: Real-time Duplex ultrasound of the Right Lower Extremity with 2-D hollis scale, color Doppler flow and spectral waveform analysis with image documentation. Limited exam was focused on the right lower extremity veins. COMPARISON: No relevant prior studies available. FINDINGS: Right deep veins: Normal blood flow within and/or compressibility of the right common femoral, femoral, distal deep femoral, popliteal, posterior tibial and peroneal veins. Right superficial veins: Saphenofemoral junction and upper greater saphenous vein patent without thrombus. Left deep veins: Normal flow within and compressibility of the left common femoral vein and saphenofemoral junction also demonstrated. Soft tissues: Unremarkable. IMPRESSION: No deep venous thrombosis in the right lower extremity.
== END 2020-05-17 00:51 | disposition home or self-care (01) ==
LOC: DL.ED 22:24
DX: L03.115 Cellulitis of right lower limb (principal); K21.9 Gastro-esophageal reflux disease without esophagitis; F41.9 Anxiety disorder, unspecified; F32.9 Major depressive disorder, single episode, unspecified; F17.210 Nicotine dependence, cigarettes, uncomplicated; Z88.7 Allergy status to serum and vaccine; Z79.899 Other long term (current) drug therapy
CPT/HCPCS: 36415; 80053; 83605; 85025; 85379; 87040; 93971; 99283; 99284-25

== ENCOUNTER 2020-07-25 08:01 | Emergency (ER) | payer MEDICARE, OTHER ==
[2020-07-25 08:22] VITALS: BP 136/67; PULSE 101
--- NOTE | 2020-07-25 09:04 | EDM.PDOC ---
ED HPI GENERAL MEDICAL PROBLEM - General Chief Complaint: Lower Extremity Injury/Pain Stated Complaint: BACK SPASMS MUSCLE PAIN POSSIBLE COVID Time Seen by Provider: 07/25/20 08:50 Source of Information: Reports: Patient History Limitations: Reports: No Limitations - History of Present Illness INITIAL COMMENTS - FREE TEXT/NARRATIVE: This 69 yo female patient reports to the ED with right hip/pelvic pain and a cough for the past week (possible exposure to COVID). The patient reports she was filling her bird feeders last night and went to move the food container when she lost control of the container and fell over the top of the container. The patient reports she felt/heard a "pop" in her right hip during the incident and has been having difficulties lifting her right leg since the time of the fall. Onset: Today Onset Date: 07/25/20 Onset Time: 01:00 Duration: Constant Location: Reports: Lower Extremity, Right Quality: Reports: Ache, Dull Severity: Moderate Improves with: Reports: Rest Worsens with: Reports: Movement Context: Reports: Activity Associated Symptoms: Reports: Cough (1 week) Right Thigh Pain Score (Numeric/FACES): 7 - Related Data Allergies Allergy/AdvReac Type Severity Reaction Status Date / Time Tetanus Vaccines and Toxoid Allergy Cannot Verified 07/25/20 08:23 [Tetanus Vaccines & Toxoid] Remember Home Meds: Home Meds Escitalopram Oxalate [Lexapro] 20 mg PO DAILY 05/09/16 [History] traZODone 50 mg PO DAILY 05/09/16 [History] LORazepam 1 tab PO ASDIRECTED 12/09/17 [History] Omeprazole 20 mg PO DAILY 05/12/20 [History] Past Medical History HEENT 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: Allergic Rhinitis Other HEENT History: wears glasses Cardiovascular 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: None Respiratory 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: None Gastrointestinal 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: GERD Genitourinary 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: None 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 Musculoskeletal 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: Arthritis Neurological 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: None Psychiatric 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: Anxiety, Depression, Other (See Below) Other Psychiatric History: night terrors Endocrine/Metabolic 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: None Hematologic 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: None Immunologic 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: None Oncologic (Cancer) 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: Breast Dermatologic 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: None - Infectious Disease History Infectious Disease 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: Chicken Pox, Measles, Mumps - Past Surgical History HEENT Surgical 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: None Cardiovascular Surgical 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: None GI Surgical 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: None Female Surgical 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: None Musculoskeletal Surgical 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: Knee Replacement Oncologic Surgical 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: Mastectomy Other Oncologic Surgeries/Procedures: bilateral 23years ago Social & Family History - Family History Family Medical History: No Pertinent Family History - Tobacco Use Tobacco Use Status *Q: Current Every Day Tobacco User Years of Tobacco use: 40 Packs/Tins Daily: 0.5 Second Hand Smoke Exposure: No - Caffeine Use Caffeine Use: Reports: Coffee, Soda - Recreational Drug Use Recreational Drug Use: No - Living Situation & Occupation Living situation: Reports: with Family Occupation: Retired Review of Systems - Review of Systems Review Of Systems: Comprehensive ROS is negative, except as noted in HPI. ED EXAM, GENERAL - Physical Exam Exam: See Below Exam Limited By: No Limitations General Appearance: Alert, WD/WN, Mild Distress Eye Exam: Bilateral Eye: EOMI, Normal Inspection, PERRL Ears: Normal External Exam, Normal Canal, Hearing Grossly Normal, Normal TMs Nose: Normal Inspection, Normal Mucosa, No Blood Throat/Mouth: Normal Inspection, Normal Lips, Normal Teeth, Normal Gums, Normal Oropharynx, Normal Voice, No Airway Compromise Head: Atraumatic, Normocephalic Neck: Normal Inspection, Supple, Non-Tender, Full Range of Motion Respiratory/Chest: No Respiratory Distress, Lungs Clear, Normal Breath Sounds, No Accessory Muscle Use, Chest Non-Tender Cardiovascular: Normal Peripheral Pulses, Regular Rate, Rhythm, No Edema, No Gallop, No JVD, No Murmur, No Rub GI/Abdominal: Normal Bowel Sounds, Soft, Non-Tender, No Organomegaly, No Distention, No Abnormal Bruit, No Mass (Female) Exam: Deferred Rectal (Female) Exam: Deferred Back Exam: Paraspinal Tenderness (generalized lower back) Extremities: Leg Pain (Right leg and hip pain. Difficulties lifting her leg off the bed. ) Neurological: Alert, Oriented, CN II-XII Intact, Normal Cognition, Normal Gait, Normal Reflexes, No Motor/Sensory Deficits Psychiatric: Normal Affect, Normal Mood Skin Exam: Warm, Dry, Intact, Normal Color, No Rash Lymphatic: No Adenopathy Course - Vital Signs Last Recorded V/S: Last Vital Signs Temp 36.4 C 07/25/20 08:17 Pulse 101 H 07/25/20 08:17 Resp 16 07/25/20 08:17 BP 136/67 07/25/20 08:17 Pulse Ox 97 07/25/20 08:17 - Orders/Labs/Meds Labs: Laboratory Tests 07/25/20 Range/Units 08:15 SARS CoV-2 RNA Rapid BERTRAND Negative (NEGATIVE) Meds: Medications Discontinued Medications Generic Name Dose Route Start Last Admin Trade Name Mahi PRN Reason Stop Dose Admin Methylprednisolone Sodium Succinate 125 mg 07/25/20 09:47 Solu-Medrol IM 07/25/20 09:48 ONETIME ONE Departure - Departure Time of Disposition: 09:50 Disposition: Home, Self-Care 01 Condition: Fair Clinical Impression: Strain of right hip Qualifiers: Encounter type: initial encounter Qualified Code(s): S76.011A - Strain of muscle, fascia and tendon of right hip, initial encounter Sciatica Qualifiers: Laterality: right Qualified Code(s): M54.31 - Sciatica, right side - Discharge Information *PRESCRIPTION DRUG MONITORING PROGRAM REVIEWED*: Not Applicable *COPY OF PRESCRIPTION DRUG MONITORING REPORT IN PATIENT CHAPITO: Not Applicable Instructions: Muscle Strain, [id number], Sciatica, [id number] Forms: ED Department Discharge Care Plan Goals: The patient was advised of the examination, lab and x-ray results during the visit. The patient was given an injection of SoluMedrol while in the ED. The patient was discharged with a script for Prednisone (20 mg) # 8 to take 2 by mouth daily with food starting 07/26/20. The patient should rest and ice the area over the next 24 hours. If the patient has any additional symptoms or concerns, the patient should either return to the emergency department or visit her primary care facility. Sepsis Event Note (ED) - Evaluation Sepsis Screening Result: No Definite Risk - Focused Exam Vital Signs: Vital Signs Temp Pulse Resp BP Pulse Ox 07/25/20 08:17 36.4 C 101 H 16 136/67 97
--- NOTE | 2020-07-25 09:34 | CR ---
PROCEDURE INFORMATION: Exam: XR Right Hip with Pelvis when Performed Exam date and time: 07/25/2020 9:08 AM Age: 69 years old Clinical indication: Hip pain; Right hip; Additional info: Fell with right hip pain (feeling of instability) TECHNIQUE: Imaging protocol: XR Right hip with pelvis when performed. Views: 2 or 3 views. COMPARISON: No relevant prior studies available. FINDINGS: Bones/joints: No fracture. No dislocation. Mild degenerative changes in the right hip joint with osteophyte formation off of the lateral and inferior femoral articular margins. Degenerative changes present in the left hip joint though milder. The symphysis pubis and sacroiliac joints are not diastatic. Soft tissues: No acute soft tissue abnormality. IMPRESSION: 1. No acute osseous abnormality. 2. Asymmetric hip osteoarthritis.
[2020-07-25] MEDS ORDERED: methylPREDNISolone Sodium Succinate 125 MG/2 ML SDV IM ONE (09:47)
== END 2020-07-25 10:03 | disposition home or self-care (01) ==
LOC: DL.ED 08:01
DX: S76.011A Strain of muscle, fascia and tendon of right hip, initial encounter (principal); M54.31 Sciatica, right side; K21.9 Gastro-esophageal reflux disease without esophagitis; F41.9 Anxiety disorder, unspecified; F32.9 Major depressive disorder, single episode, unspecified; F17.210 Nicotine dependence, cigarettes, uncomplicated; Z88.7 Allergy status to serum and vaccine; Z79.899 Other long term (current) drug therapy; Z20.828 Contact with and (suspected) exposure to other viral communicable diseases; W01.0XXA Fall on same level from slipping, tripping and stumbling without subsequent striking against object, initial encounter
CPT/HCPCS: 96372; 99284-25; J2930; U0002

== ENCOUNTER 2020-09-07 16:19 | Emergency (ER) | payer MEDICARE, OTHER ==
[2020-09-07 17:08] VITALS: BP 149/86; PULSE 101
[2020-09-07] MEDS ORDERED: Ketorolac 30 MG/ML SDV IM ONE (17:25)
--- NOTE | 2020-09-07 17:39 | CT ---
PROCEDURE INFORMATION: Exam: CT Chest Without Contrast; Diagnostic Exam date and time: 09/07/2020 5:04 PM Age: 69 years old Clinical indication: Other: HX breast CA S/P b/l mastectomy with implants--hx left rib FX with pneumothorax; Additional info: Fall RT chest wall and sternal pain TECHNIQUE: Imaging protocol: Diagnostic computed tomography of the chest without contrast. Radiation optimization: All CT scans at this facility use at least one of these dose optimization techniques: automated exposure control; mA and/or kV adjustment per patient size (includes targeted exams where dose is matched to clinical indication); or iterative reconstruction. COMPARISON: CR Chest 1V Frontal 07/02/2019 7:11 PM FINDINGS: Lungs: Moderate diffuse emphysematous changes are present. Mild non-specific patchy linear density at both bases. These changes could be inflammatory or could reflect atelectasis. Pleural space: No pleural effusion. No pneumothorax. Heart: The heart is not enlarged. Aorta: There is no thoracic aortic aneurysm. There is mild diffuse calcific atherosclerotic plaque. Lymph nodes: There is no evidence of lymphadenopathy. Adrenals: The adrenal glands are normal. Bones/joints: There multiple healed left-sided rib fractures. There is significant respiratory motion limiting rib detail. No displaced right-sided rib fracture seen. Subtle nondisplaced rib fractures could be obscured. Soft tissues: Status post bilateral mastectomy.Status post bilateral breast implants. IMPRESSION: 1. No acute findings. 2. Limited rib detail. No definitive acute rib fracture seen. There multiple healed left rib fractures.
--- NOTE | 2020-09-07 17:54 | EDM.PDOC ---
"Scribed by Usha Boykin 09/07/20 [id number] for Eliana Sommer MD ED HPI GENERAL MEDICAL PROBLEM - General Chief Complaint: General Stated Complaint: FELL BROKE RIBS Time Seen by Provider: 09/07/20 17:00 Source of Information: Reports: Patient, RN, RN Notes Reviewed History Limitations: Reports: No Limitations - History of Present Illness INITIAL COMMENTS - FREE TEXT/NARRATIVE: Patient presents to ED by POV. She comes in immediately following a mechanical fall on the ice. She stepped out of her vehicle and slipped falling first face onto her chest. She is experiencing sternal and right chest pain and shortness of breath secondary to chest wall pain. Neither symptom present prior to fall. She has been having frequent falls and was worked up by neurology recently, but states that this fall was due to slipping on the ice. She denies dizziness, loss of consciousness, palpitations. She did not hit her head. She denies any bowel or bladder incontinence. She did not bite her tongue. Her only symptoms at this time are the chest pain and secondary dyspnea. Onset: Today Duration: Constant Location: Reports: Chest Quality: Reports: Ache Severity: Severe Improves with: Reports: None Worsens with: Reports: Movement Associated Symptoms: Reports: No Other Symptoms right ribs Pain Score (Numeric/FACES): 10 - Related Data Allergies Allergy/AdvReac Type Severity Reaction Status Date / Time Tetanus Vaccines and Toxoid Allergy Cannot Verified 09/07/20 17:13 [Tetanus Vaccines & Toxoid] Remember Home Meds: Home Meds Escitalopram Oxalate [Lexapro] 20 mg PO DAILY 05/09/16 [History] traZODone 50 mg PO DAILY 05/09/16 [History] LORazepam 1 tab PO ASDIRECTED 12/09/17 [History] Omeprazole 20 mg PO DAILY 05/12/20 [History] Past Medical History HEENT 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: Allergic Rhinitis Other HEENT History: wears glasses Cardiovascular 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: None Respiratory 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: None Gastrointestinal 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: GERD Genitourinary 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: None 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 Musculoskeletal 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: Arthritis Neurological 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: None Psychiatric 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: Anxiety, Depression, Other (See Below) Other Psychiatric History: night terrors Endocrine/Metabolic 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: None Hematologic 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: None Immunologic 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: None Oncologic (Cancer) 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: Breast Dermatologic 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: None - Infectious Disease History Infectious Disease 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: Chicken Pox, Measles, Mumps - Past Surgical History HEENT Surgical 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: None Cardiovascular Surgical 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: None GI Surgical 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: None Female Surgical 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: None Musculoskeletal Surgical 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: Knee Replacement Oncologic Surgical 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: Mastectomy Other Oncologic Surgeries/Procedures: bilateral 23years ago Social & Family History - Family History Family Medical History: No Pertinent Family History - Caffeine Use Caffeine Use: Reports: Coffee, Soda - Living Situation & Occupation Living situation: Reports: with Family Occupation: Retired ED ROS GENERAL - Review of Systems Review Of Systems: Comprehensive ROS is negative, except as noted in HPI. ED EXAM, GENERAL - Physical Exam Exam: See Below Exam Limited By: No Limitations General Appearance: Alert, Moderate Distress Eye Exam: Bilateral Eye: EOMI, PERRL Ears: Normal External Exam, Normal Canal, Hearing Grossly Normal, Normal TMs Nose: Normal Inspection, Normal Mucosa, No Blood Throat/Mouth: Normal Inspection, Normal Lips, Normal Teeth, Normal Gums, Normal Oropharynx, Normal Voice, No Airway Compromise Head: Atraumatic, Normocephalic Neck: Normal Inspection, Supple, Non-Tender, Full Range of Motion Respiratory/Chest: No Respiratory Distress, Lungs Clear, Normal Breath Sounds, No Accessory Muscle Use, Chest Non-Tender, Other (sternal and right chest pain to palpation. ) Cardiovascular: Normal Peripheral Pulses, Regular Rate, Rhythm, No Edema, No Gallop, No JVD, No Murmur, No Rub GI/Abdominal: Normal Bowel Sounds, Soft, Non-Tender, No Organomegaly, No Distention, No Abnormal Bruit, No Mass (Female) Exam: Deferred Rectal (Female) Exam: Deferred Extremities: Normal Inspection, Normal Range of Motion, Non-Tender, No Pedal Edema, Normal Capillary Refill, Other ( Minimal pain to palpation over the greater trochanter of the right hip. ) Neurological: Alert, Oriented, CN II-XII Intact, Normal Cognition, Normal Gait, Normal Reflexes, No Motor/Sensory Deficits Psychiatric: Normal Affect, Normal Mood Skin Exam: Warm, Dry, Intact, Normal Color, No Rash Course - Vital Signs Last Recorded V/S: Last Vital Signs Temp 98.6 F 09/07/20 16:30 Pulse 101 H 09/07/20 16:30 Resp 20 09/07/20 16:30 BP 149/86 H 09/07/20 16:30 Pulse Ox 96 09/07/20 16:30 - Orders/Labs/Meds Meds: Medications Discontinued Medications Generic Name Dose Route Start Last Admin Trade Name Freq PRN Reason Stop Dose Admin Ketorolac Tromethamine 30 mg 09/07/20 17:25 09/07/20 17:36 Toradol IM 09/07/20 17:26 30 mg ONETIME ONE Administration - Radiology Interpretation Free Text/Narrative:: [facility] Final Radiology Report Call: [phone] assistance Online chat: [email or web address] Name: AKIN TALAMANTES Age: 69Years F Date: 09/07/2020 SSN: -- : 1950 Study: CT CHEST WO CONT Requesting Physician: ELIANA SOMMER Images: 290 Addl Studies: Provided Clinical History: Fall Rt chest wall and sternal pain Contrast: Without Contrast Medium: Contrast Amount: Contrast Method: Page 1 of 2 PROCEDURE INFORMATION: Exam: CT Chest Without Contrast; Diagnostic Exam date and time: 09/07/2020 5:04 PM Age: 69 years old Clinical indication: Other: HX breast CA S/P b/l mastectomy with implants--hx left rib FX with pneumothorax; Additional info: Fall RT chest wall and sternal pain TECHNIQUE: Imaging protocol: Diagnostic computed tomography of the chest without contrast. Radiation optimization: All CT scans at this facility use at least one of these dose optimization techniques: automated exposure control; mA and/or kV adjustment per patient size (includes targeted exams where dose is matched to clinical indication); or iterative reconstruction. COMPARISON: CR Chest 1V Frontal 07/02/2019 7:11 PM FINDINGS: Lungs: Moderate diffuse emphysematous changes are present. Mild non-specific patchy linear density at both bases. These changes could be inflammatory or could reflect at electasis. Pleural space: No pleural effusion. No pneumothorax. Heart: The heart is not enlarged. Aorta: There is no thoracic aortic aneurysm. There is mild diffuse calcific atherosclerotic plaque. Lymph nodes: There is no evidence of lymphadenopathy. Adrenals: The adrenal glands are normal. Bones/joints: There multiple healed left-sided rib fractures. There is significant respiratory motion limiting rib detail. No displaced right-sided rib fracture seen. Subtle nondisplaced rib fractures could be obscured. Soft tissues: Status post bilateral mastectomy.Status post bilateral breast i mplants. IMPRESSION: AKIN TALAMANTES | Final Radiology Report CONFIDENTIALITY STATEMENT This report is intended only for use by the referring physician, and only in accordance with law. If you received this in error, call [phone]. Page 2 of 2 1. No acute findings. 2. Limited rib detail. No definitive acute rib fracture seen. There multiple healed left rib fractures. Thank you for allowing us to participate in the care of your patient. Dictated and Authenticated by: Roc Nguyen MD 09/07/2020 5:39 PM Central Time ([place] & [place]) - Re-Assessments/Exams Free Text/Narrative Re-Assessment/Exam: 09/07/20 17:51 I saw and evaluated the patient. Discussed with resident and agree with residents findings and plan as documented in the residents note. Departure - Departure Time of Disposition: 17:51 Disposition: Home, Self-Care 01 Condition: Good Clinical Impression: Chest wall contusion Qualifiers: Encounter type: initial encounter Laterality: right Qualified Code(s): S20.211A - Contusion of right front wall of thorax, initial encounter Fall due to ice or snow Qualifiers: Encounter type: initial encounter Qualified Code(s): W00.9XXA - Unspecified fall due to ice and snow, initial encounter - Discharge Information *PRESCRIPTION DRUG MONITORING PROGRAM REVIEWED*: Not Applicable *COPY OF PRESCRIPTION DRUG MONITORING REPORT IN PATIENT [place]APITO: Not Applicable Instructions: Rib Contusion Forms: ED Department Discharge Additional Instructions: Use over the counter Tylenol (Acetaminophen) and Ibuprofen (Motrin/Advil) as needed for pain. Follow directions on label for dosing and precautions. Follow up in clinic if any further concerns. Sepsis Event Note (ED) - Focused Exam Vital Signs: Vital Signs Temp Pulse Resp BP Pulse Ox 09/07/20 16:30 98.6 F 101 H 20 149/86 H 96 I have read and agree with the documentation that has been completed regarding this visit. By signing this record, I attest that the documentation was completed in my physical presence and is an accurate record of the encounter."
== END 2020-09-07 18:11 | disposition home or self-care (01) ==
LOC: DL.ED 16:19
DX: S20.211A Contusion of right front wall of thorax, initial encounter (principal); M25.551 Pain in right hip; K21.9 Gastro-esophageal reflux disease without esophagitis; F41.9 Anxiety disorder, unspecified; F32.9 Major depressive disorder, single episode, unspecified; Z88.7 Allergy status to serum and vaccine; Z79.899 Other long term (current) drug therapy; W00.9XXA Unspecified fall due to ice and snow, initial encounter
CPT/HCPCS: 71250; 96372; 99284; J1885; 99283

== ENCOUNTER 2020-10-10 06:00 | Emergency (ER) | payer MEDICARE, OTHER ==
[2020-10-10 06:11] VITALS: BP 115/59; PULSE 86
--- NOTE | 2020-10-10 06:20 | EDM.PDOC ---
<Earl Ching M - Last Filed: 10/10/20 07:01> ED HPI GENERAL MEDICAL PROBLEM - General Chief Complaint: General Stated Complaint: Intoxicated, chest pain, passed out Time Seen by Provider: 10/10/20 06:02 Source of Information: Reports: Patient History Limitations: Reports: No Limitations - History of Present Illness INITIAL COMMENTS - FREE TEXT/NARRATIVE: This 69 yo female patient reports to the ED vis [facility] due to generalized dizziness, 2 episodes of syncope and generalized chest pain. The patient reports she fell about 1 month ago and has been experiencing increased pain in her chest since the fall. The patient reports she was working until 0030 this morning. After she got home, she reports she had eaten dinner and had 4 drinks. The patient reports she does not remember passing out, but was told by her coworker that she had passed out 2 times prior to calling the ambulance. Onset: Today Duration: Minutes: Location: Reports: Chest, Generalized Quality: Reports: Other Severity: Moderate Improves with: Reports: None Worsens with: Reports: None Context: Reports: Other Associated Symptoms: Reports: Chest Pain, Syncope Chest Pain Score (Numeric/FACES): 6 - Related Data Allergies Allergy/AdvReac Type Severity Reaction Status Date / Time clindamycin Allergy Cannot Verified 10/10/20 06:12 Remember Tetanus Vaccines and Toxoid Allergy Cannot Verified 10/10/20 06:12 [Tetanus Vaccines & Toxoid] Remember Home Meds: Home Meds Escitalopram Oxalate [Lexapro] 20 mg PO DAILY 05/09/16 [History] traZODone 50 mg PO BEDTIME 05/09/16 [History] LORazepam 1 tab PO ASDIRECTED 12/09/17 [History] Omeprazole 20 mg PO DAILY 05/12/20 [History] Past Medical History HEENT 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: Allergic Rhinitis Other HEENT History: wears glasses Cardiovascular 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: None Respiratory 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: None Gastrointestinal 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: GERD Genitourinary 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: None 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 Musculoskeletal 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: Arthritis Neurological 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: None Psychiatric 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: Anxiety, Depression, Other (See Below) Other Psychiatric History: night terrors Endocrine/Metabolic 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: None Hematologic 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: None Immunologic 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: None Oncologic (Cancer) 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: Breast Dermatologic 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: None - Infectious Disease History Infectious Disease 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: Chicken Pox, Measles, Mumps - Past Surgical History HEENT Surgical 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: None Cardiovascular Surgical 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: None GI Surgical 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: None Female Surgical 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: None Musculoskeletal Surgical 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: Knee Replacement Oncologic Surgical 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: Mastectomy Other Oncologic Surgeries/Procedures: bilateral 23years ago Social & Family History - Family History Family Medical History: No Pertinent Family History - Caffeine Use Caffeine Use: Reports: Coffee - Living Situation & Occupation Living situation: Reports: with Family Occupation: Retired ED ROS GENERAL - Review of Systems Review Of Systems: Comprehensive ROS is negative, except as noted in HPI. ED EXAM, GENERAL - Physical Exam Exam: See Below Exam Limited By: No Limitations General Appearance: Alert, WD/WN, Anxious, Moderate Distress Eye Exam: Bilateral Eye: EOMI, Normal Inspection, PERRL Ears: Normal External Exam, Normal Canal, Hearing Grossly Normal, Normal TMs Nose: Normal Inspection, Normal Mucosa, No Blood Throat/Mouth: Normal Inspection, Normal Lips, Normal Teeth, Normal Gums, Normal Oropharynx, Normal Voice, No Airway Compromise Head: Atraumatic, Normocephalic Neck: Normal Inspection, Supple, Non-Tender, Full Range of Motion Respiratory/Chest: No Respiratory Distress, Lungs Clear, Normal Breath Sounds, No Accessory Muscle Use, Other (generalized chest tenderness) Cardiovascular: Normal Peripheral Pulses, Regular Rate, Rhythm, No Edema, No Gallop, No JVD, No Murmur, No Rub GI/Abdominal: Normal Bowel Sounds, Soft, Non-Tender, No Organomegaly, No Distention, No Abnormal Bruit, No Mass (Female) Exam: Deferred Rectal (Female) Exam: Deferred Back Exam: Normal Inspection Extremities: Normal Inspection, Normal Range of Motion, Non-Tender, Normal Capillary Refill, No Pedal Edema Neurological: Alert, Oriented, CN II-XII Intact, Normal Cognition, Normal Gait, Normal Reflexes, No Motor/Sensory Deficits Psychiatric: Normal Affect, Normal Mood Skin Exam: Warm, Dry, Intact, Normal Color, No Rash Lymphatic: No Adenopathy Departure - Departure Disposition: Home, Self-Care 01 Clinical Impression: Hypokalemia, Atypical chest pain, Dehydration Alcohol intoxication Qualifiers: Complication of substance-induced condition: uncomplicated Qualified Code(s): F10.920 - Alcohol use, unspecified with intoxication, uncomplicated - Discharge Information Instructions: Hypokalemia, Nonspecific Chest Pain, Adult, Alcohol Intoxication, Dehydration, Adult Forms: ED Department Discharge Additional Instructions: Rx: Potassium Chloride 20mEq Drink plenty of water. Abstain from alcohol consumption. Follow up in clinic next week for potassium level recheck. Sepsis Event Note (ED) - Evaluation Sepsis Screening Result: No Definite Risk <Raphael Sommer - Last Filed: 10/10/20 08:32> ED HPI GENERAL MEDICAL PROBLEM - General Source of Information: Reports: Patient, Old Records, RN, RN Notes Reviewed History Limitations: Reports: No Limitations Course - Vital Signs Last Recorded V/S: Last Vital Signs Temp 97 F 10/10/20 06:06 Pulse 86 10/10/20 06:06 Resp 18 10/10/20 06:06 BP 115/59 L 10/10/20 06:06 Pulse Ox 95 10/10/20 06:06 - Orders/Labs/Meds Orders: Active Orders 24 hr Category Date Time Status EKG Documentation Completion [RC] STAT Care 10/10/20 05:58 Active CULTURE BLOOD [BC] Stat Lab 10/10/20 06:33 Results CULTURE URINE [RM] Urgent Lab 10/10/20 06:20 Received Labs: Laboratory Tests 10/10/20 10/10/20 10/10/20 Range/Units 06:20 06:33 06:33 WBC 11.9 H (5.0-10.0) 10^3/uL RBC 4.28 (4.2-5.4) 10^6/uL Hgb 13.3 (12.0-16.0) g/dL Hct 39.3 (37.0-47.0) % MCV 91.8 (80-100) fL MCH 31.1 (27.0-34.0) pg MCHC 33.8 (33.0-35.0) g/dL Plt Count 330 (150-450) 10^3/uL Neut % (Auto) 79.0 H (42.2-75.2) % Lymph % (Auto) 14.7 L (20.5-50.1) % Angelina % (Auto) 4.9 (2-8) % Eos % (Auto) 1.1 (1.0-3.0) % Baso % (Auto) 0.3 (0.0-1.0) % Sodium 139 (136-145) mmol/L Potassium 2.9 L (3.5-5.1) mmol/L Chloride 103 (98-107) mmol/L Carbon Dioxide 25 (21-32) mmol/L Anion Gap 13.9 H (7-13) mEq/L BUN 10 (7-18) mg/dL Creatinine 1.46 H (0.55-1.02) mg/dL Est Cr Clr Drug Dosing 35.00 mL/min Estimated GFR (MDRD) 36 BUN/Creatinine Ratio 6.8 (No establ ref range) Glucose 106 H (74-99) mg/dL Lactic Acid (0.4-2.0) mmol/L Calcium 8.9 (8.5-10.1) mg/dL Total Bilirubin 0.3 (0.2-1.0) mg/dL AST 15 (15-37) U/L ALT 16 (14-59) U/L Alkaline Phosphatase 98 (46-116) U/L Troponin I < 0.017 (0.000-0.056) ng/mL Total Protein 6.7 (6.4-8.2) g/dL Albumin 3.8 (3.4-5.0) g/dL Globulin 2.9 Albumin/Globulin Ratio 1.3 Urine Color Yellow (YELLOW) Urine Appearance Slightly cloudy (CLEAR) Urine pH 5.5 (5.0-9.0) Ur Specific [facility] 1.010 (1.005-1.030) Urine Protein Negative (NEGATIVE) Urine Glucose (UA) Negative (NEGATIVE) Urine Ketones Negative (NEGATIVE) Urine Occult Blood Trace-intact H (NEGATIVE) Urine Nitrite Negative (NEGATIVE) Urine Bilirubin Negative (NEGATIVE) Urine Urobilinogen 0.2 (0.2-1.0) mg/dL Ur Leukocyte Esterase Trace H (NEGATIVE) Urine RBC 5-10 H /HPF Urine WBC 10-20 H (0-5/HPF) /HPF Ur Epithelial Cells Few (NOT SEEN) /HPF Amorphous Sediment Moderate H (NOT SEEN) /HPF Urine Bacteria Few (0-FEW/HPF) /HPF Urine Mucus Few H (NOT SEEN) /LPF Ethyl Alcohol 123 (0) mg/dL 10/10/20 Range/Units 06:33 WBC (5.0-10.0) 10^3/uL RBC (4.2-5.4) 10^6/uL Hgb (12.0-16.0) g/dL Hct (37.0-47.0) % MCV (80-100) fL MCH (27.0-34.0) pg MCHC (33.0-35.0) g/dL Plt Count (150-450) 10^3/uL Neut % (Auto) (42.2-75.2) % Lymph % (Auto) (20.5-50.1) % Angelina % (Auto) (2-8) % Eos % (Auto) (1.0-3.0) % Baso % (Auto) (0.0-1.0) % Sodium (136-145) mmol/L Potassium (3.5-5.1) mmol/L Chloride (98-107) mmol/L Carbon Dioxide (21-32) mmol/L Anion Gap (7-13) mEq/L BUN (7-18) mg/dL Creatinine (0.55-1.02) mg/dL Est Cr Clr Drug Dosing mL/min Estimated GFR (MDRD) BUN/Creatinine Ratio (No establ ref range) Glucose (74-99) mg/dL Lactic Acid 1.4 (0.4-2.0) mmol/L Calcium (8.5-10.1) mg/dL Total Bilirubin (0.2-1.0) mg/dL AST (15-37) U/L ALT (14-59) U/L Alkaline Phosphatase (46-116) U/L Troponin I (0.000-0.056) ng/mL Total Protein (6.4-8.2) g/dL Albumin (3.4-5.0) g/dL Globulin Albumin/Globulin Ratio Urine Color (YELLOW) Urine Appearance (CLEAR) Urine pH (5.0-9.0) Ur Specific [facility] (1.005-1.030) Urine Protein (NEGATIVE) Urine Glucose (UA) (NEGATIVE) Urine Ketones (NEGATIVE) Urine Occult Blood (NEGATIVE) Urine Nitrite (NEGATIVE) Urine Bilirubin (NEGATIVE) Urine Urobilinogen (0.2-1.0) mg/dL Ur Leukocyte Esterase (NEGATIVE) Urine RBC /HPF Urine WBC (0-5/HPF) /HPF Ur Epithelial Cells (NOT SEEN) /HPF Amorphous Sediment (NOT SEEN) /HPF Urine Bacteria (0-FEW/HPF) /HPF Urine Mucus (NOT SEEN) /LPF Ethyl Alcohol (0) mg/dL Meds: Medications Discontinued Medications Generic Name Dose Route Start Last Admin Trade Name Mahi PRN Reason Stop Dose Admin Sodium Chloride 1,000 mls @ 999 mls/hr 10/10/20 07:14 10/10/20 07:50 Normal Saline IV 10/10/20 08:14 999 mls/hr .BOLUS ONE Administration Potassium Chloride 10 meq/ 100 mls @ 100 mls/hr 10/10/20 07:16 10/10/20 07:54 Premix IV 10/10/20 08:15 100 mls/hr ONETIME ONE Administration Ibuprofen 600 mg 10/10/20 08:19 10/10/20 08:26 Motrin PO 10/10/20 08:20 600 mg ONETIME ONE Administration Lidocaine HCl 30 ml 10/10/20 07:16 10/10/20 07:56 Xylocaine-Mpf 1% INJECT 10/10/20 07:17 30 ml ONETIME ONE Administration Ondansetron HCl 4 mg 10/10/20 07:18 10/10/20 07:50 Zofran IV 10/10/20 07:19 4 mg ONETIME ONE Administration Potassium Chloride 40 meq 10/10/20 07:18 10/10/20 07:56 Klor-Con 10 PO 10/10/20 07:19 40 meq ONETIME ONE Administration - Radiology Interpretation Free Text/Narrative:: [facility] Final Radiology Report Call: [phone] assistance Online chat: [email or web address] Name: AKIN TALAMANTES Age: 69Years F Date: 10/10/2020 SSN: -- : 1950 Study: CR CHEST 1V FRONTAL Requesting Physician: Earl Ching Images: 1 Addl Studies: Provided Clinical History: chest pain Contrast: Contrast Medium: Contrast Amount: Contrast Method: CONFIDENTIALITY STATEMENT This report is intended only for use by the referring physician, and only in accordance with law. If you received this in error, call [phone]. Page 1 of 1 PROCEDURE INFORMATION: Exam: XR Chest, 1 View Exam date and time: 10/10/2020 6:38 AM Age: 69 years old Clinical indication: Chest pain TECHNIQUE: Imaging protocol: XR of the chest Views: 1 view. COMPARISON: CT Chest wo Cont 09/07/2020 5:04 PM FINDINGS: Lungs: Breast attenuation over the lower lungs. The pulmonary parenchyma is otherwise clear. No pulmonary infiltrate or consolidation. No pulmonary nodules or masses. Pleural spaces: Unremarkable. No pleural effusion. No pneumothorax. Heart/Mediastinum: Unremarkable. No cardiomegaly. Bones/joints: Unremarkable. Soft tissues: Bilateral breast implants. Surgical clips in the right axilla. IMPRESSION: No acute cardiopulmonary disease. Thank you for allowing us to participate in the care of your patient. Dictated and Authenticated by: Aime David MD 10/10/2020 7:00 AM Central Time ([place] & [place]) - Re-Assessments/Exams Free Text/Narrative Re-Assessment/Exam: 10/10/20 07:58 Pt reports currently having no chest pain, nausea, or other complaints at this time. She admits that she drank way more alcohol than usual, and states that she is very embarrassed that she "passed out" and ended up in the ER. Departure - Departure Time of Disposition: 09:00 Condition: Good - Discharge Information *PRESCRIPTION DRUG MONITORING PROGRAM REVIEWED*: Not Applicable *COPY OF PRESCRIPTION DRUG MONITORING REPORT IN PATIENT [place]IT[place]: Not Applicable Sepsis Event Note (ED) - Focused Exam Vital Signs: Vital Signs Temp Pulse Resp BP Pulse Ox 10/10/20 06:06 97 F 86 18 115/59 L 95
--- NOTE | 2020-10-10 07:00 | CR ---
PROCEDURE INFORMATION: Exam: XR Chest, 1 View Exam date and time: 10/10/2020 6:38 AM Age: 69 years old Clinical indication: Chest pain TECHNIQUE: Imaging protocol: XR of the chest Views: 1 view. COMPARISON: CT Chest wo Cont 09/07/2020 5:04 PM FINDINGS: Lungs: Breast attenuation over the lower lungs. The pulmonary parenchyma is otherwise clear. No pulmonary infiltrate or consolidation. No pulmonary nodules or masses. Pleural spaces: Unremarkable. No pleural effusion. No pneumothorax. Heart/Mediastinum: Unremarkable. No cardiomegaly. Bones/joints: Unremarkable. Soft tissues: Bilateral breast implants. Surgical clips in the right axilla. IMPRESSION: No acute cardiopulmonary disease.
[2020-10-10 07:04] LABS: ANION GAP 13.9 mEq/L (7-13); CHLORIDE,CL 103 mmol/L (98-107); SODIUM,NA 139 mmol/L (136-145)
[2020-10-10] MEDS ORDERED: Sodium Chloride 0.9% 1,000 ML IV ONE (07:14)
[2020-10-10] MEDS ORDERED: Lidocaine 1% 30 ML SDV INJECT ONE (07:16)
[2020-10-10] MEDS ORDERED: Potassium Chloride 10 MEQ in Premix Bag 1 BAG IV ONE (07:16)
[2020-10-10] MEDS ORDERED: Ondansetron 4 MG/2 ML SDV IV ONE (07:18)
[2020-10-10] MEDS ORDERED: Potassium Chloride 10 MEQ Tab.ER PO ONE (07:18)
[2020-10-10] MEDS ORDERED: Ibuprofen 600 MG Tab PO ONE (08:19)
== END 2020-10-10 09:40 | disposition home or self-care (01) ==
LOC: DL.ED 06:00
DX: E87.6 Hypokalemia (principal); E86.0 Dehydration; F10.120 Alcohol abuse with intoxication, uncomplicated; R07.89 Other chest pain; K21.9 Gastro-esophageal reflux disease without esophagitis; Z88.1 Allergy status to other antibiotic agents; Z88.7 Allergy status to serum and vaccine; Z79.899 Other long term (current) drug therapy; Y90.6 Blood alcohol level of 120-199 mg/100 ml
CPT/HCPCS: 36415; 71045; 80053; 80307; 81001; 83605; 84484; 85025; 87040; 87086; 87088; 87186; 93005; 96365; 96375; 99285; A9270; J2405; J3480; J7030; 99283

== ENCOUNTER 2021-06-19 23:21 | Emergency (ER) | payer MEDICARE, OTHER ==
[2021-06-19] MEDS ORDERED: Acetaminophen/oxyCODONE 325-5 MG Tab PO ONE (23:22)
--- NOTE | 2021-06-19 23:37 | EDM.PDOC ---
"ED HPI GENERAL MEDICAL PROBLEM - General Chief Complaint: Head Injury Stated Complaint: PT FELL DOWN STAIRS INJURY TO HEAD Time Seen by Provider: 06/19/21 23:30 Source of Information: Reports: Patient History Limitations: Reports: No Limitations - History of Present Illness INITIAL COMMENTS - FREE TEXT/NARRATIVE: This 70 yo female patient reports to the ED due to falling down approximately 13 stairs. The patient reports she was cleaning up some mud from her shoes when she lost her balance and fell down the stairs. The patient denies any loss of consciousness before, during or after the fall. The patient states she did have a couple of drinks last earlier tonight. The patient also reports she has had low potassium levels in the past. The patient denies any other pain or symptoms at this time. Onset: Today Duration: Minutes: Location: Reports: Head, Face Quality: Reports: Other Severity: Moderate Improves with: Reports: None Worsens with: Reports: None Context: Reports: Trauma (Fall down stairs) Associated Symptoms: Reports: No Other Symptoms - Related Data Allergies Allergy/AdvReac Type Severity Reaction Status Date / Time clindamycin Allergy Cannot Verified 06/19/21 23:32 Remember Tetanus Vaccines and Toxoid Allergy Cannot Verified 06/19/21 23:32 [Tetanus Vaccines & Toxoid] Remember Home Meds: Home Meds Escitalopram Oxalate [Lexapro] 20 mg PO DAILY 05/09/16 [History] traZODone 50 mg PO BEDTIME 05/09/16 [History] LORazepam 1 tab PO ASDIRECTED 12/09/17 [History] Omeprazole 20 mg PO DAILY 05/12/20 [History] Albuterol [Take Home: Albuterol 18 GM, 1 INH Pack] 2 puff INH Q6HR PRN 06/19/21 [History] Past Medical History HEENT 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: Allergic Rhinitis Other HEENT History: wears glasses Cardiovascular 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: None Respiratory 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: None Gastrointestinal 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: GERD Genitourinary 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: None [employer]ENTICE 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: None Musculoskeletal 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: Arthritis Neurological 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: None Psychiatric 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: Anxiety, Depression, Other (See Below) Other Psychiatric History: night terrors Endocrine/Metabolic 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: None Hematologic 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: None Immunologic 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: None Oncologic (Cancer) 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: Breast Dermatologic 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: None - Infectious Disease History Infectious Disease 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: Chicken Pox, Measles, Mumps, Novel Coronavirus - Past Surgical History HEENT Surgical 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: None Cardiovascular Surgical 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: None GI Surgical 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: None Female Surgical 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: None Musculoskeletal Surgical 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: Knee Replacement Oncologic Surgical 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: Mastectomy Other Oncologic Surgeries/Procedures: bilateral 23years ago Social & Family History - Family History Family Medical History: No Pertinent Family History - Caffeine Use Caffeine Use: Reports: None - Living Situation & Occupation Living situation: Reports: with Family Occupation: Retired ED ROS GENERAL - Review of Systems Review Of Systems: Comprehensive ROS is negative, except as noted in HPI. ED EXAM, HEAD INJURY - Physical Exam Exam: See Below Exam Limited By: No Limitations General Appearance: Alert, WD/WN, Moderate Distress Head: Facial Abrasions, Facial Lacerations, Facial Swelling, Facial Tenderness Eyes: Bilateral Eye: EOMI, Normal Inspection, PERRL Ears: Normal External Exam, Normal Canal, Hearing Grossly Normal, Normal TMs Nose: Dried Blood Throat/Mouth: Normal Inspection, Normal Lips, Normal Gums, Normal Oropharynx, Normal Voice, No Airway Compromise Respiratory: No Respiratory Distress, Lungs Clear, Normal Breath Sounds, No Accessory Muscle Use, Chest Non-Tender Cardiovascular: Normal Peripheral Pulses, Regular Rate, Rhythm, No Edema, No Gallop, No JVD, No Murmur, No Rub GI/Abdominal Exam: Normal Bowel Sounds, Soft, Non-Tender, No Organomegaly, No Distention, No Abnormal Bruit, No Mass (Female) Exam: Deferred Rectal (Female) Exam: Deferred Back Exam: Full Range of Motion, Normal Inspection, NT Extremities: Normal Inspection, Normal Range of Motion, Non-Tender, No Pedal Edema, Normal Capillary Refill Neurologic: automation developer II-XII nml As Tested, No Motor/Sensory Deficits, Alert, Normal Mood/Affect, Oriented x 3 Skin: Normal Color, Warm/Dry - Brandon Coma Score Best Eye Response (Brandon): (4) Open Spontaneously Best Verbal Response (Aj): (5) Oriented Best Motor Response (Brandon): (6) Obeys Commands Brandon Total: 15 #1 Interpretation EKG Date: 06/19/21 Time: 23:54 Rhythm: NSR Rate (Beats/Min): 78 [place]: Normal P-Wave: Present QRS: Normal ST-T: Normal QT: Normal Comparison: No Change Course - Vital Signs Last Recorded V/S: Last Vital Signs Temp 97 F 06/19/21 23:33 Pulse 94 06/19/21 23:33 Resp 18 06/19/21 23:33 BP 143/72 H 06/19/21 23:33 Pulse Ox 97 06/19/21 23:33 - Orders/Labs/Meds Orders: Active Orders 24 hr Category Date Time Status Head wo Cont [CT] Urgent Exams 06/19/21 23:29 Ordered Max Facial Sinus wo Cont [CT] Urgent Exams 06/19/21 23:29 Ordered Labs: Laboratory Tests 06/19/21 06/19/21 Range/Units 23:35 23:35 WBC 8.1 (5.0-10.0) 10^3/uL RBC 4.69 (4.2-5.4) 10^6/uL Hgb 14.6 (12.0-16.0) g/dL Hct 43.9 (37.0-47.0) % MCV 93.6 (80-100) fL MCH 31.1 (27.0-34.0) pg MCHC 33.3 (33.0-35.0) g/dL Plt Count 398 (150-450) 10^3/uL Neut % (Auto) 50.7 (42.2-75.2) % Lymph % (Auto) 42.2 (20.5-50.1) % [place] % (Auto) 5.4 (2-8) % Eos % (Auto) 1.2 (1.0-3.0) % Baso % (Auto) 0.5 (0.0-1.0) % Sodium 141 (136-145) mmol/L Potassium 3.0 L (3.5-5.1) mmol/L Chloride 103 (98-107) mmol/L Carbon Dioxide 25 (21-32) mmol/L Anion Gap 16.0 H (7-13) mEq/L BUN 13 (7-18) mg/dL Creatinine 0.86 (0.55-1.02) mg/dL Est Cr Clr Drug Dosing 56.34 mL/min Estimated GFR (MDRD) > 60 BUN/Creatinine Ratio 15.1 (No establ ref range) Glucose 111 H (70-99) mg/dL Calcium 9.0 (8.5-10.1) mg/dL Total Bilirubin 0.2 (0.2-1.0) mg/dL AST 17 (15-37) U/L ALT 20 (14-59) U/L Alkaline Phosphatase 101 (46-116) U/L Troponin I High Sens 6 (<=51) pg/mL Total Protein 7.2 (6.4-8.2) g/dL Albumin 3.9 (3.4-5.0) g/dL Globulin 3.3 Albumin/Globulin Ratio 1.2 Ethyl Alcohol 186 (0) mg/dL Meds: Medications Discontinued Medications Generic Name Dose Route Start Last Admin Trade Name Freq PRN Reason Stop Dose Admin Bacitracin 1 dose 06/20/21 00:21 06/20/21 00:32 Bacitracin Oint 1 Gm U/D Packet TOP 06/20/21 00:22 1 dose ONETIME ONE Administration - Radiology Interpretation Free Text/Narrative:: [facility] Final Radiology Report Call: [phone] assistance Online chat: [email or web address] Name: AKIN TALAMANTES Age: 70Years F Date: 06/19/2021 SSN: -- : 1950 Study: CT CERVICAL SPINE WO CONT Requesting Physician: Earl Ching Images: [id number] Addl Studies: Provided Clinical History: Fall down stairs Contrast: Without Contrast Medium: Contrast Amount: Contrast Method: Page 1 of 2 PROCEDURE INFORMATION: Exam: CT Cervical Spine Without Contrast Exam date and time: 06/19/2021 11:42 PM Age: 70 years old Clinical indication: Other: Fall/pain; Additional info: Fall down stairs TECHNIQUE: Imaging protocol: Computed tomography images of the cervical spine without contrast. Radiation optimization: All CT scans at this facility use at least one of these dose optimization techniques: automated exposure control; mA and/or kV adjustment per patient size (includes targeted exams where dose is matched to clinical indication); or iterative reconstruction. COMPARISON: CT Chest wo Cont 09/07/2020 5:04 PM FINDINGS: Bones/joints: Acute fracture of the left clavicular head. Discs/Spinal canal/Neural foramina: No significant disc protrusion. No severe spinal canal stenosis. No significant neural foraminal narrowing. Lungs: Centrilobular emphysema. Soft tissues: Unremarkable. IMPRESSION: 1. No acute cervical spine abnormality. 2. Acute fracture of the left clavicular head. Thank you for allowing us to participate in the care of your patient. Dictated and Authenticated by: Kelsey Aguilera MD AKIN TALAMANTES | Final Radiology Report CONFIDENTIALITY STATEMENT This report is intended only for use by the referring physician, and only in accordance with law. If you received this in error, call [phone]. Page 2 of 2 06/20/2021 12:31 AM Central Time ([place] & [place]) [facility] Final Radiology Report Call: [phone] assistance Online chat: [email or web address] Name: AKIN TALAMANTES Age: 70Years F Date: 06/19/2021 SSN: -- : 1950 Study: CT HEAD WO CONT Requesting Physician: Earl Ching Images: [id number] Addl Studies: Provided Clinical History: Fall down stairs Contrast: Without Contrast Medium: Contrast Amount: Contrast Method: CONFIDENTIALITY STATEMENT This report is intended only for use by the referring physician, and only in accordance with law. If you received this in error, call [phone]. Page 1 of 1 PROCEDURE INFORMATION: Exam: CT Head Without Contrast Exam date and time: 06/19/2021 11:42 PM Age: 70 years old Clinical indication: Other: Fall/pain; Additional info: Fall down stairs TECHNIQUE: Imaging protocol: Computed tomography of the head without contrast. Radiation optimization: All CT scans at this facility use at least one of these dose optimization techniques: automated exposure control; mA and/or kV adjustment per patient size (includes targeted exams where dose is matched to clinical indication); or iterative rec onstruction. COMPARISON: CT Head wo Cont 05/09/2019 4:42 PM FINDINGS: Brain: Normal. No hemorrhage. Unremarkable white matter. No mass effect. Cerebral ventricles: No ventriculomegaly. Paranasal sinuses: Visualized sinuses are unremarkable. No fluid levels. Mastoid air cells: Visualized mastoid air cells are well aerated. Bones/joints: Unremarkable. No acute fracture. Soft tissues: Unremarkable. IMPRESSION: No acute intracranial abnormality. Thank you for allowing us to participate in the care of your patient. Dictated and Authenticated by: Kelsey Aguilera MD 06/20/2021 12:35 AM Central Time ([place] & [place]) [facility] [place] [facility] Final Radiology Report Call: [phone] assistance Online chat: [email or web address] Name: AKIN TALAMANTES Age: 70Years F Date: 06/19/2021 SSN: -- : 1950 Study: CT MAX FACIAL SINUS WO CONT Requesting Physician: Earl Ching Images: 226 Addl Studies: Provided Clinical History: Fall down stairs Contrast: Without Contrast Medium: Contrast Amount: Contrast Method: CONFIDENTIALITY STATEMENT This report is intended only for use by the referring physician, and only in accordance with law. If you received this in error, call [phone]. Page 1 of 1 PROCEDURE INFORMATION: Exam: CT Maxillofacial Without Contrast Exam date and time: 06/19/2021 11:42 PM Age: 70 years old Clinical indication: Other: Fall/pain; Additional info: Fall down stairs TECHNIQUE: Imaging protocol: Computed tomography images of the face without contrast. Radiation optimization: All CT scans at this facility use at least one of these dose optimization techniques: automated exposure control; mA and/or kV adjustment per patient size (includes targeted exams where dose is matched to clinical indication); or iterative reconstruction. COMPARISON: CT Head wo Cont 05/09/2019 4:42 PM FINDINGS: Orbital cavity: Orbits are normal. Globes are unremarkable. Bones/joints: No acute fracture. Paranasal sinuses: Normal. No air-fluid levels. Soft tissues: Unremarkable. IMPRESSION: No acute findings. Thank you for allowing us to participate in the care of your patient. Dictated and Authenticated by: Kelsey Aguilera MD 06/20/2021 12:41 AM Central Time ([place] & [place]) Departure - Departure Time of Disposition: 00:55 Disposition: Home, Self-Care 01 Condition: Fair Clinical Impression: Fall down stairs Qualifiers: Encounter type: initial encounter Qualified Code(s): W10.8XXA - Fall (on) (from) other stairs and steps, initial encounter Facial contusion Qualifiers: Encounter type: initial encounter Qualified Code(s): S00.83XA - Contusion of other part of head, initial encounter Closed left clavicular fracture Qualifiers: Encounter type: initial encounter Clavicle location: sternal end Fracture alignment: nondisplaced Qualified Code(s): S42.018A - Nondisplaced fracture of sternal end of left clavicle, initial encounter for closed fracture - Discharge Information *PRESCRIPTION DRUG MONITORING PROGRAM REVIEWED*: Not Applicable *COPY OF PRESCRIPTION DRUG MONITORING REPORT IN PATIENT [place]: Not Applicable Instructions: Facial or Scalp Contusion, [id number], Fall Prevention in the Home, Adult, Hematoma, [id number], Clavicle Fracture, [id number] Forms: ED Department Discharge Care Plan Goals: The patient was advised of the examination, lab, EKG and CT results during the visit. The patient was given an IV dose of Toradol while in the ED. The patient was discharged with Percocet (5/325) #2 to take 1 by mouth every 6 hours as needed and a script for Percocet (5/325) #8 to take 1 by mouth every 6 hours as needed. The patient was encouraged to rest and ice the areas of concern. If the patient has any additional symptoms or concerns, the patient should either return to the emergency department or visit her primary care facility. Sepsis Event Note (ED) - Focused Exam Vital Signs: Vital Signs Temp Pulse Resp BP Pulse Ox 06/19/21 23:33 97 F 94 18 143/72 H 97 - My Orders Last 24 Hours: My Active Orders 06/19/21 23:29 Head wo Cont [CT] Urgent Max Facial Sinus wo Cont [CT] Urgent - Assessment/Plan Last 24 Hours: My Active Orders 06/19/21 23:29 Head wo Cont [CT] Urgent Max Facial Sinus wo Cont [CT] Urgent"
[2021-06-19 23:41] VITALS: BP 143/72; PULSE 94
[2021-06-20 00:01] LABS: CHLORIDE,CL 103 mmol/L (98-107); SODIUM,NA 141 mmol/L (136-145)
[2021-06-20] MEDS ORDERED: Bacitracin Oint 1 GM U/D Packet TOP ONE (00:21)
--- NOTE | 2021-06-20 00:32 | CT ---
PROCEDURE INFORMATION: Exam: CT Cervical Spine Without Contrast Exam date and time: 06/19/2021 11:42 PM Age: 70 years old Clinical indication: Other: Fall/pain; Additional info: Fall down stairs TECHNIQUE: Imaging protocol: Computed tomography images of the cervical spine without contrast. Radiation optimization: All CT scans at this facility use at least one of these dose optimization techniques: automated exposure control; mA and/or kV adjustment per patient size (includes targeted exams where dose is matched to clinical indication); or iterative reconstruction. COMPARISON: CT Chest wo Cont 09/07/2020 5:04 PM FINDINGS: Bones/joints: Acute fracture of the left clavicular head. Discs/Spinal canal/Neural foramina: No significant disc protrusion. No severe spinal canal stenosis. No significant neural foraminal narrowing. Lungs: Centrilobular emphysema. Soft tissues: Unremarkable. IMPRESSION: 1. No acute cervical spine abnormality. 2. Acute fracture of the left clavicular head.
[2021-06-20] MEDS ORDERED: Ketorolac 30 MG/ML SDV IVPUSH ONE (00:36)
--- NOTE | 2021-06-20 00:36 | CT ---
PROCEDURE INFORMATION: Exam: CT Head Without Contrast Exam date and time: 06/19/2021 11:42 PM Age: 70 years old Clinical indication: Other: Fall/pain; Additional info: Fall down stairs TECHNIQUE: Imaging protocol: Computed tomography of the head without contrast. Radiation optimization: All CT scans at this facility use at least one of these dose optimization techniques: automated exposure control; mA and/or kV adjustment per patient size (includes targeted exams where dose is matched to clinical indication); or iterative reconstruction. COMPARISON: CT Head wo Cont 05/09/2019 4:42 PM FINDINGS: Brain: Normal. No hemorrhage. Unremarkable white matter. No mass effect. Cerebral ventricles: No ventriculomegaly. Paranasal sinuses: Visualized sinuses are unremarkable. No fluid levels. Mastoid air cells: Visualized mastoid air cells are well aerated. Bones/joints: Unremarkable. No acute fracture. Soft tissues: Unremarkable. IMPRESSION: No acute intracranial abnormality.
--- NOTE | 2021-06-20 00:41 | CT ---
PROCEDURE INFORMATION: Exam: CT Maxillofacial Without Contrast Exam date and time: 06/19/2021 11:42 PM Age: 70 years old Clinical indication: Other: Fall/pain; Additional info: Fall down stairs TECHNIQUE: Imaging protocol: Computed tomography images of the face without contrast. Radiation optimization: All CT scans at this facility use at least one of these dose optimization techniques: automated exposure control; mA and/or kV adjustment per patient size (includes targeted exams where dose is matched to clinical indication); or iterative reconstruction. COMPARISON: CT Head wo Cont 05/09/2019 4:42 PM FINDINGS: Orbital cavity: Orbits are normal. Globes are unremarkable. Bones/joints: No acute fracture. Paranasal sinuses: Normal. No air-fluid levels. Soft tissues: Unremarkable. IMPRESSION: No acute findings.
[2021-06-20] MEDS ORDERED: Acetaminophen/oxyCODONE 325-5 MG Tab ONE (00:56)
== END 2021-06-20 01:08 | disposition home or self-care (01) ==
LOC: DL.ED 23:21
DX: S42.018A Nondisplaced fracture of sternal end of left clavicle, initial encounter for closed fracture (principal); S01.81XA Laceration without foreign body of other part of head, initial encounter; K21.9 Gastro-esophageal reflux disease without esophagitis; Z79.899 Other long term (current) drug therapy; Z88.7 Allergy status to serum and vaccine; Z88.1 Allergy status to other antibiotic agents; W10.8XXA Fall (on) (from) other stairs and steps, initial encounter
CPT/HCPCS: 36415; 70450; 70486; 72125; 80053; 80307; 84484; 85025; 93005; 96374; 99284; A9270; J1885

== ENCOUNTER 2022-02-27 19:50 | Emergency (ER) | payer MEDICARE, OTHER ==
[2022-02-27 20:04] VITALS: BP 124/69; PULSE 95
[2022-02-27 20:51] LABS: ANION GAP 11.4 mEq/L (7-13)
== END 2022-02-27 22:22 | disposition home or self-care (01) ==
LOC: DL.ED 19:50
DX: R42 Dizziness and giddiness (principal); K21.9 Gastro-esophageal reflux disease without esophagitis; Z88.1 Allergy status to other antibiotic agents; Z88.7 Allergy status to serum and vaccine; Z79.899 Other long term (current) drug therapy; Z86.16 Personal history of COVID-19
CPT/HCPCS: 36415; 80053; 83735; 85025; 93005; 93010; 99282; 99284-25

== ENCOUNTER 2022-09-09 04:51 | Emergency (ER) | payer MEDICARE, OTHER ==
[2022-09-09 05:27] VITALS: BP 131/78; PULSE 88
[2022-09-09 06:09] LABS: ANION GAP 14.3 mEq/L (7-13)
[2022-09-09 06:17] LABS: PTT,PARTIAL THROMBOPLSTIN TIME 25.3 SEC (22.0-34.0)
== END 2022-09-09 06:39 | disposition home or self-care (01) ==
LOC: DL.ED 04:51
DX: S22.31XA Fracture of one rib, right side, initial encounter for closed fracture (principal); S00.83XA Contusion of other part of head, initial encounter; J43.2 Centrilobular emphysema; F10.920 Alcohol use, unspecified with intoxication, uncomplicated; K21.9 Gastro-esophageal reflux disease without esophagitis; M50.30 Other cervical disc degeneration, unspecified cervical region; M85.89 Other specified disorders of bone density and structure, multiple sites; I10 Essential (primary) hypertension; Z88.1 Allergy status to other antibiotic agents; Z88.7 Allergy status to serum and vaccine; Z86.16 Personal history of COVID-19; W18.30XA Fall on same level, unspecified, initial encounter
CPT/HCPCS: 36415; 70450; 71250; 72125; 80053; 80307; 85025; 85610; 85730; 99284

== ENCOUNTER 2023-10-20 08:24 | Day surgery (SDC) | payer MEDICARE, OTHER ==
[2023-10-20] MEDS ORDERED: Ondansetron 4 MG/2 ML SDV IVPUSH PRN (08:30)
[2023-10-20] MEDS ORDERED: Acetaminophen/Codeine 300-30 MG Tab PO PRN (08:30)
[2023-10-20] MEDS ORDERED: Acetaminophen 325 MG Tab PO PRN (08:30)
[2023-10-20] MEDS: Proparacaine 0.5% Ophth Soln 15 ML Bottle EYERT ONE ×2 (08:46→09:44)
[2023-10-20] MEDS: Moxifloxacin 0.5% Ophth Soln 3 ML Bottle EYERT ONE (08:46)
[2023-10-20] MEDS: Povidone-Iodine 5% Sterile Ophth Soln 30 ML Bottle EYERT ONE ×2 (08:49→09:45)
[2023-10-20] MEDS: Tropicamide 1% Ophth Soln 15 ML Bottle EYERT ONE (08:50)
[2023-10-20] MEDS: Timolol Maleate 0.5% Ophth Soln 5 ML Bottle EYERT ONE (08:50)
[2023-10-20] MEDS: Phenylephrine 10% Ophth Soln 5 ML Bot EYERT ONE (08:50)
[2023-10-20] MEDS: Cataract Ophth Solution EYERT ONE (08:52)
[2023-10-20] MEDS: Sodium Chloride 0.9% 10 ML Syringe FLUSH PRN (09:02)
[2023-10-20] MEDS: Apraclonidine 0.5% Ophth Soln 5 ML Bot EYERT ONE (09:46)
[2023-10-20] MEDS: Diclofenac Sodium 0.1% Ophth Soln 5 ML Bottle EYERT ONE (09:47)
[2023-10-20] MEDS: Dexamethasone/Tobramycin 0.1-0.3% Ophth Oint 3.5 GM Tube EYERT ONE (09:48)
[2023-10-20] MEDS: Lidocaine 1% 30 ML SDV INJECT ONE (09:48)
[2023-10-20] MEDS: Vancomycin 500 MG SDV EYERT ONE (09:49)
[2023-10-20 10:12] VITALS: PULSE 68
[2023-10-20 10:29] VITALS: BP 113/62
== END 2023-10-20 10:42 | disposition home or self-care (01) ==
LOC: DL.SDS 08:24
PROVIDERS: ATTEND Ophthalmology
DX: H25.811 Combined forms of age-related cataract, right eye (principal); I27.20 Pulmonary hypertension, unspecified; F41.8 Other specified anxiety disorders; F17.210 Nicotine dependence, cigarettes, uncomplicated; Z79.899 Other long term (current) drug therapy; Z98.890 Other specified postprocedural states; E11.9 Type 2 diabetes mellitus without complications
CPT/HCPCS: 66984; A9270; J3370; V2787; J3490

== ENCOUNTER 2023-11-03 08:42 | Day surgery (SDC) | payer MEDICARE, OTHER ==
[~2023-11-03 08:42] MED LIST: Acetaminophen 325 MG Tab PO PRN; Acetaminophen/Codeine 300-30 MG Tab PO PRN; Ondansetron 4 MG/2 ML SDV IVPUSH PRN
[2023-11-03] MEDS: Moxifloxacin 0.5% Ophth Soln 3 ML Bottle EYELF ONE (09:07)
[2023-11-03] MEDS: Proparacaine 0.5% Ophth Soln 15 ML Bottle EYELF ONE ×2 (09:07→09:45)
[2023-11-03] MEDS: Tropicamide 1% Ophth Soln 15 ML Bottle EYELF ONE (09:08)
[2023-11-03] MEDS: Povidone-Iodine 5% Sterile Ophth Soln 30 ML Bottle EYELF ONE (09:08)
[2023-11-03] MEDS: Timolol Maleate 0.5% Ophth Soln 5 ML Bottle EYELF ONE (09:09)
[2023-11-03] MEDS: Phenylephrine 10% Ophth Soln 5 ML Bot EYELF ONE (09:09)
[2023-11-03] MEDS: Cataract Ophth Solution EYELF ONE (09:10)
[2023-11-03] MEDS: Sodium Chloride 0.9% 10 ML Syringe FLUSH PRN (09:11)
[2023-11-03] MEDS: Balanced Salt Solution Ophth Irrig 15 ML Bottle EYELF ONE (09:46)
[2023-11-03] MEDS: Lidocaine 1% 30 ML SDV ONE (09:56)
[2023-11-03] MEDS: Balanced Salt Solution Ophth Irrig 500 ML Bottle IOCULAR ONE (09:57)
[2023-11-03] MEDS: Vancomycin 500 MG SDV EYELF ONE (09:57)
[2023-11-03] MEDS: Apraclonidine 0.5% Ophth Soln 5 ML Bot EYELF ONE (09:58)
[2023-11-03] MEDS: Chondroitin Sulfate/Hyaluronate Sodium Ophth Inj 0.75 ML Syringe EYELF ONE (09:58)
[2023-11-03] MEDS: Dexamethasone/Neomycin/Polymyxin B Ophth Oint 3.5 GM Tube EYELF ONE (09:59)
[2023-11-03] MEDS: Diclofenac Sodium 0.1% Ophth Soln 5 ML Bottle EYELF ONE (09:59)
[2023-11-03 10:16] VITALS: PULSE 70
[2023-11-03 11:33] VITALS: BP 125/56
== END 2023-11-03 10:33 | disposition home or self-care (01) ==
LOC: DL.SDS 08:42
PROVIDERS: ATTEND Ophthalmology
DX: E11.36 Type 2 diabetes mellitus with diabetic cataract (principal); H25.812 Combined forms of age-related cataract, left eye; M85.80 Other specified disorders of bone density and structure, unspecified site; G20.A1 Parkinson's disease without dyskinesia, without mention of fluctuations; F41.8 Other specified anxiety disorders; Z96.651 Presence of right artificial knee joint; Z90.10 Acquired absence of unspecified breast and nipple; Z90.710 Acquired absence of both cervix and uterus; Z90.49 Acquired absence of other specified parts of digestive tract; Z90.89 Acquired absence of other organs; Z98.890 Other specified postprocedural states; F17.210 Nicotine dependence, cigarettes, uncomplicated; Z79.899 Other long term (current) drug therapy; Z85.3 Personal history of malignant neoplasm of breast; Z88.7 Allergy status to serum and vaccine; Z88.1 Allergy status to other antibiotic agents; M54.42 Lumbago with sciatica, left side; Z79.4 Long term (current) use of insulin
CPT/HCPCS: A9270-GY; J3370; J3490; V2787-GY

== ENCOUNTER 2024-04-29 23:31 | Emergency (ER) | payer MEDICARE, OTHER | END 2024-04-30 00:41 | disposition left against medical advice (07) | LOC: DL.ED 23:31 | DX: Z53.21 Procedure and treatment not carried out due to patient leaving prior to being seen by health care provider (principal) ==

== ENCOUNTER 2024-07-18 03:42 | Emergency (ER) | payer MEDICARE, OTHER ==
[2024-07-18 04:20] VITALS: BP 115/62; PULSE 69
[2024-07-18 04:21] LABS: BASOPHILS PERCENT AUTO 0.7 % (0.0-1.0); EOSINOPHILS PERCENT AUTO 2.2 % (1.0-3.0); HEMOGLOBIN 13.1 g/dL (12.0-16.0); LYMPHOCYTES PERCENT AUTO 28.3 % (20.5-50.1); MEAN CORPUSCULAR HGB CONC 33.6 g/dL (33.0-35.0); MEAN CORPUSCULAR VOLUME 95.4 fL (80-100); MONOCYTES PERCENT AUTO 6.4 % (2-8); NEUTROPHILS PERCENT AUTO 62.4 % (42.2-75.2); PLATELET COUNT,PLT 309 10^3/uL (150-450); RED BLOOD CELL COUNT 4.09 10^6/uL (4.2-5.4); WHITE BLOOD CELL COUNT,WBC 6.7 10^3/uL (5.0-10.0)
[2024-07-18 04:50] LABS: A/G RATIO 1.4; ALBUMIN 3.5 g/dL (3.4-5.0); ALKALINE PHOSPHATASE 72 U/L (46-116); ANION GAP 17.3 mEq/L (7-13); ASPARTATE AMNIOTRANSFERASE,AST 17 U/L (15-37); BILIRUBIN TOTAL 0.5 mg/dL (0.2-1.0); BLOOD UREA NITROGEN,BUN 11 mg/dL (7-18); BUN/CREATININE RATIO 9.3 (No establ ref range); CALCIUM 9.1 mg/dL (8.5-10.1); CARBON DIOXIDE,CO2 23 mmol/L (21-32); CHLORIDE,CL 103 mmol/L (98-107); CREATININE 1.18 mg/dL (0.55-1.02); EST CRCL DRUG DOSING (CG) 37.76 mL/min; GLUCOSE RANDOM 71 mg/dL (70-99); MAGNESIUM 1.5 mg/dL (1.8-2.4); POTASSIUM,K 3.3 mmol/L (3.5-5.1); SODIUM,NA 140 mmol/L (136-145); TSH ULTRASENSITIVE 3.01 uIU/mL (0.36-3.74)
[2024-07-18 04:51] LABS: ALANINE AMINOTRANSFERASE,ALT < 6 U/L (14-59); ESTIMATED GFR 49 mL/min (>=60)
[2024-07-18] MEDS: Magnesium Sulfate/Water Premix 2 GM in Premix Bag 1 BAG IV ONE (05:18)
[2024-07-18 05:36] LABS: APPEARANCE,URINE CLEAR (CLEAR); BILIRUBIN,URINE NEGATIVE (NEGATIVE); COLOR,URINE YELLOW (YELLOW); GLUCOSE,URINE NEGATIVE (NEGATIVE); KETONES,URINE TRACE (NEGATIVE); LEUKOCYTE ESTERASE,URINE SMALL (NEGATIVE); NITRITE,URINE NEGATIVE (NEGATIVE); OCCULT BLOOD,URINE NEGATIVE (NEGATIVE); PH,URINE 6.5 (5.0-9.0); PROTEIN,URINE NEGATIVE (NEGATIVE); UROBILINOGEN,URINE 0.2 mg/dL (0.2-1.0)
[2024-07-18 05:44] LABS: BACTERIA,URINE FEW /HPF (0-FEW/HPF); EPITHELIAL CELLS,URINE FEW /HPF (NOT SEEN); RBC,URINE 0-5 /HPF (0-5)
[2024-07-18] MEDS: Potassium Chloride 10 MEQ Tab.ER PO ONE (05:52)
== END 2024-07-18 06:05 | disposition home or self-care (01) ==
LOC: DL.ED 03:42
DX: E87.6 Hypokalemia (principal); E83.42 Hypomagnesemia; R55 Syncope and collapse; I10 Essential (primary) hypertension; K21.9 Gastro-esophageal reflux disease without esophagitis; M19.90 Unspecified osteoarthritis, unspecified site; Z86.16 Personal history of COVID-19; Z90.49 Acquired absence of other specified parts of digestive tract; Z90.710 Acquired absence of both cervix and uterus; Z88.1 Allergy status to other antibiotic agents; Z88.7 Allergy status to serum and vaccine; Z79.51 Long term (current) use of inhaled steroids; Z79.82 Long term (current) use of aspirin; Z79.899 Other long term (current) drug therapy
CPT/HCPCS: 36415; 70450; 80053; 81001; 83735; 84443; 85025; 87086; 87088; 87186; 93005; 93010; 96365; 99284; 99284-25; A9270-GY; J3475

== ENCOUNTER 2024-07-19 19:20 | Inpatient (IN) | payer MEDICARE, OTHER ==
[2024-07-19] MEDS: fentaNYL 100 MCG/2 ML SDV IVPUSH ONE ×4 (20:15→22:10)
[2024-07-19] MEDS ORDERED: Ropivacaine 100 ML EPIDUR ONE (22:22)
[2024-07-19] MEDS ORDERED: Ketorolac 30 MG/ML SDV IVPUSH ONE (22:22)
[2024-07-19] MEDS ORDERED: Ondansetron 4 MG/2 ML SDV IV ONE (22:22)
[2024-07-19] MEDS ORDERED: Propofol 200 MG/20 ML SDV IV ONE (22:22)
[2024-07-19] MEDS: Morphine 2 MG/ML SYRINGE IVPUSH ONE (23:05)
[2024-07-19] MEDS: HYDROmorphone 1 MG/ML Syringe IVPUSH PRN (23:51)
[2024-07-19] MEDS: traZODone 50 MG Tab PO SCH (23:51)
[2024-07-19] MEDS: Ondansetron 4 MG/2 ML SDV IVPUSH ONE (23:52)
[2024-07-19] MEDS: Cyclobenzaprine 10 MG Tab PO PRN (23:54)
[2024-07-20] MEDS: Morphine 2 MG/ML SYRINGE IVPUSH PRN (01:48)
[2024-07-20] MEDS: HYDROmorphone 2 MG/ML Syringe IVPUSH PRN (03:48)
[2024-07-20] MEDS: HYDROmorphone 2 MG/ML Syringe ONE (04:00)
[2024-07-20] MEDS ORDERED: Albuterol 6.7 GM Inhaler INH PRN (08:56)
[2024-07-20] MEDS ORDERED: Acetaminophen 500 MG Tab PO PRN (08:56)
[2024-07-20] MEDS ORDERED: Fluticasone NASAL Spray 16 GM Bottle NASRT PRN (08:56)
[2024-07-20] MEDS ORDERED: traMADol 50 MG Tab PO PRN (09:00)
[2024-07-20] MEDS ORDERED: Cyclobenzaprine 10 MG Tab PO SCH (09:00)
[2024-07-20] MEDS ORDERED: Naloxone 2 MG/2 ML Syringe IV PRN (09:09)
[2024-07-20] MEDS ORDERED: Docusate Sodium 100 MG Cap PO PRN (09:11)
[2024-07-20] MEDS ORDERED: Sodium Chloride 0.9% 1,000 ML IV SCH (09:15)
[2024-07-20] MEDS: Aspirin 81 MG Tab.EC PO SCH (10:19)
[2024-07-20] MEDS: Gabapentin 300 MG Cap PO SCH (10:19)
[2024-07-20] MEDS: Spironolactone 25 MG Tab PO SCH (10:20)
[2024-07-20] MEDS: Omeprazole 20 MG Cap.CR PO SCH (10:21)
[2024-07-20] MEDS: Escitalopram 10 MG Tab PO SCH (10:21)
[2024-07-20] MEDS: Enoxaparin 40 MG/0.4 ML Syringe SUBCUT SCH (10:36)
[2024-07-20] MEDS: oxyCODONE ER 20 MG TAB.ER PO SCH (10:36)
[2024-07-20] MEDS: Carbidopa/Levodopa 25-100 MG Tab.ER PO SCH (12:12)
[2024-07-20] MEDS: Carbidopa/Levodopa 25-100 MG Tab PO SCH (13:17)
[2024-07-20] MEDS: oxyCODONE 5 MG Tab PO PRN (13:45)
[2024-07-20] MEDS: HYDROmorphone 1 MG/ML Syringe IVPUSH ONE (16:58)
[2024-07-20] MEDS ORDERED: traZODone 50 MG Tab PO SCH (21:00)
[2024-07-20] MEDS: LORazepam 1 MG Tab PO SCH (21:44)
[2024-07-20] MEDS: HYDROmorphone 1 MG/ML Syringe IVPUSH PRN (21:48)
[2024-07-20] MEDS: Sodium Chloride 0.9% 1,000 ML IV SCH (21:57)
[2024-07-21] MEDS: Cyclobenzaprine 10 MG Tab PO PRN (06:08)
[2024-07-21] MEDS: Calcium Carbonate/Vitamin D3 1250 MG-5 MCG Tab PO SCH (08:28)
[2024-07-21] MEDS: Multivitamin Tab PO SCH (08:28)
[2024-07-21] MEDS: Ibuprofen 400 MG Tab PO ONE (12:17)
[2024-07-21] MEDS: Acetaminophen/oxyCODONE 325-5 MG Tab PO PRN (19:43)
[2024-07-22 07:54] LABS: BASOPHILS PERCENT AUTO 0.3 % (0.0-1.0); HEMOGLOBIN 13.1 g/dL (12.0-16.0); LYMPHOCYTES PERCENT AUTO 33.7 % (20.5-50.1); MEAN CORPUSCULAR HEMOGLOBIN 31.8 pg (27.0-34.0); MEAN CORPUSCULAR HGB CONC 32.8 g/dL (33.0-35.0); MEAN CORPUSCULAR VOLUME 97.1 fL (80-100); MONOCYTES PERCENT AUTO 7.7 % (2-8); NEUTROPHILS PERCENT AUTO 55.3 % (42.2-75.2); PLATELET COUNT,PLT 355 10^3/uL (150-450); RED BLOOD CELL COUNT 4.12 10^6/uL (4.2-5.4); WHITE BLOOD CELL COUNT,WBC 7.3 10^3/uL (5.0-10.0)
[2024-07-22] MEDS ORDERED: Sodium Chloride 0.9% 10 ML Syringe FLUSH PRN (07:58)
[2024-07-22 08:11] LABS: ANION GAP 10.4 mEq/L (7-13); CALCIUM 9.3 mg/dL (8.5-10.1); CREATININE 0.91 mg/dL (0.55-1.02); EST CRCL DRUG DOSING (CG) 48.96 mL/min; MAGNESIUM 1.6 mg/dL (1.8-2.4); POTASSIUM,K 4.4 mmol/L (3.5-5.1)
[2024-07-22] MEDS ORDERED: Albuterol/Ipratropium 3.0-0.5 MG/3 ML Neb Soln NEB PRN (08:30)
[2024-07-22] MEDS: Magnesium Sulfate/Water Premix 2 GM in Premix Bag 1 BAG IV ONE (09:28)
[2024-07-22] MEDS: Ketorolac 30 MG/ML SDV IVPUSH PRN (11:54)
[2024-07-22] MEDS: Sodium Chloride 0.9% 10 ML Syringe FLUSH SCH (12:11)
[2024-07-23] MEDS: Acetaminophen 325 MG Tab PO PRN (08:30)
[2024-07-23 16:39] VITALS: BP 120/54; PULSE 73
== END 2024-07-23 18:00 | disposition home or self-care (01) | DRG 563 ==
LOC: DL.ED 19:20 → DL.MS 22:21 → OBSVTOIN 07-21 16:41
PROVIDERS: ADMIT Internal Medicine; ATTEND Internal Medicine
PROC: 0RSNXZZ Reposition Right Wrist Joint, External Approach (ICD-10-PCS; principal; 2024-07-19)
DX: S52.502A Unspecified fracture of the lower end of left radius, initial encounter for closed fracture (principal); S62.102A Fracture of unspecified carpal bone, left wrist, initial encounter for closed fracture; S63.075A Dislocation of distal end of left ulna, initial encounter; I10 Essential (primary) hypertension; G20.A1 Parkinson's disease without dyskinesia, without mention of fluctuations; F32.A Depression, unspecified; I27.20 Pulmonary hypertension, unspecified; G89.29 Other chronic pain; M54.50 Low back pain, unspecified; F43.10 Post-traumatic stress disorder, unspecified; K21.9 Gastro-esophageal reflux disease without esophagitis; F41.9 Anxiety disorder, unspecified; M19.90 Unspecified osteoarthritis, unspecified site; E83.42 Hypomagnesemia; F17.210 Nicotine dependence, cigarettes, uncomplicated; Z88.1 Allergy status to other antibiotic agents; Z88.7 Allergy status to serum and vaccine; Z79.82 Long term (current) use of aspirin; Z86.16 Personal history of COVID-19; Z90.49 Acquired absence of other specified parts of digestive tract; Z90.10 Acquired absence of unspecified breast and nipple; Z90.710 Acquired absence of both cervix and uterus; Z79.899 Other long term (current) drug therapy; W01.0XXA Fall on same level from slipping, tripping and stumbling without subsequent striking against object, initial encounter
CPT/HCPCS: 01820 ×2; 25605; 73110 ×2; 82947; 93005; 96374; 96375 ×2; 96376 ×3; 99100; 99284; A9270 ×32; G0378 ×3; J1171 ×8; J1885; J2270 ×2; J2405; J2704; J2795; J3010 ×4; J7030; 36415; 80048; 83735; 85025; 93010; J1650; J3475; J3490